=== PATIENT | female | born 1950 | race Caucasian/White ===

== ENCOUNTER 2017-02-08 19:56 | Observation (INO) | payer BC ==
[2017-02-08] MEDS ORDERED: NITROGLYCERIN OINT 1 INCH/GM PACKET TOPICAL STA (20:40)
[2017-02-08] MEDS ORDERED: ASPIRIN 81 MG CHEW PO STA (20:40)
--- NOTE | 2017-02-08 20:43 | ED ---
General Adult HPI - General Chief complaint: Chest Pain Stated complaint: Tightness in Chest Time Seen by Provider: 02/08/17 20:30 Source: patient, RN notes reviewed Mode of arrival: ambulatory Limitations: no limitations - History of Present Illness Initial comments: Patient is a pleasant 66-year-old female presenting to the emergency department with complaints of tightness in her chest. Onset was around 3:30 or 4 wall cutting the grass. Patient states discomfort was moderate however now is mild. Discomfort is described as tightness. Patient also had some mild upset stomach/nausea that has resolved. No diaphoresis. No dyspnea. No history of similar symptoms previously. Patient was somewhat fatigued. No leg pain or swelling. No cough or fever. - Related Data Home Medications Medication Instructions Recorded Confirmed Albuterol Inhaler [Ventolin Hfa 1 - 2 puff INHALATION RT-Q6H PRN 04/28/16 Inhaler] Aspirin EC [Ecotrin] 81 mg PO DAILY 04/28/16 02/08/17 Cholecalciferol [Vitamin D3] 2,000 unit PO DAILY 04/28/16 02/08/17 Intal Inhaler 2 puff INHALATION RT-BID PRN 04/28/16 02/08/17 Loratadine [Claritin] 10 mg PO DAILY PRN 04/28/16 02/08/17 Montelukast [Singulair] 10 mg PO DAILY 04/28/16 02/08/17 Pantoprazole Sodium [Protonix] 20 mg PO DAILY 04/28/16 02/08/17 Phenobarb/Hyoscy/Atropine/Scop 16.2 mg PO DAILY PRN 04/28/16 02/08/17 [ Tablet] amLODIPine [Norvasc] 5 mg PO DAILY 04/28/16 02/08/17 Docusate [Colace] 100 mg PO DAILY PRN 09/09/16 02/08/17 Ranitidine HCl 150 mg PO HS 09/09/16 02/08/17 Allergies Allergy/AdvReac Type Severity Reaction Status Date / Time egg Allergy Dyspnea Verified 02/08/17 21:27 Review of Systems ROS Statement: Those systems with pertinent positive or pertinent negative responses have been documented in the HPI. ROS Other: All systems not noted in ROS Statement are negative. Constitutional: Denies: fever Eyes: Denies: eye pain ENT: Denies: ear pain Respiratory: Denies: cough, dyspnea Cardiovascular: Reports: chest pain Endocrine: Reports: fatigue Gastrointestinal: Reports: nausea. Denies: abdominal pain Genitourinary: Denies: urgency Musculoskeletal: Denies: back pain Skin: Denies: rash Neurological: Denies: headache Past Medical History Past Medical History: Asthma, GERD/Reflux, Hypertension, Osteoarthritis (OA), Syncope Additional Past Medical History / Comment(s): hx. of syncope History of Any Multi-Drug Resistant Organisms: None Reported Past Surgical History: Tonsillectomy Additional Past Surgical History / Comment(s): EGD, colonoscopies Past Anesthesia/Blood Transfusion Reactions: Postoperative Nausea & Vomiting ( PONV) Past Psychological History: No Psychological Hx Reported Smoking Status: Never smoker Past Alcohol Use History: None Reported Past Drug Use History: None Reported - Past Family History Mother Family Medical History: No Reported History General Exam Limitations: no limitations General appearance: alert, in no apparent distress Head exam: Present: atraumatic, normocephalic Eye exam: Present: normal appearance, PERRL ENT exam: Present: normal oropharynx Neck exam: Present: normal inspection Respiratory exam: Present: normal lung sounds bilaterally. Absent: chest wall tenderness Cardiovascular Exam: Present: regular rate, normal rhythm Expanded Peripheral pulses: 2+: Radial (R), Radial (L), Dorsalis Pedis (R), Dorsalis Pedis (L) GI/Abdominal exam: Present: soft. Absent: distended, tenderness, guarding, rebound, rigid, pulsatile mass Extremities exam: Present: normal inspection. Absent: pedal edema, calf tenderness Neurological exam: Present: alert Psychiatric exam: Present: normal affect, normal mood Skin exam: Absent: rash Course Vital Signs 02/08/17 02/08/17 20:03 22:16 Temperature 98.1 F Pulse Rate 101 H 92 Respiratory 20 16 Rate Blood Pressure 162/85 118/66 O2 Sat by Pulse 99 97 Oximetry EKG Findings - EKG Comments: EKG Findings:: Normal sinus rhythm 95. LA 166. QRS 84. QT 362. QTC 454. Normal axis. Normal QRS. Normal ST-T. Medical Decision Making - Medical Decision Making Patient reevaluated and resting comfortably in bed. Patient symptom-free at this time. Patient updated on results and plan. Case discussed in detail with Dr. Hernandez, who will admit for Dr. Felix. - Lab Data Result diagrams: 02/08/17 21:08 02/08/17 21:08 Lab Results 02/08/17 02/08/17 02/08/17 Range/Units 21:08 21:08 21:08 WBC 10.8 H (3.8-10.6) k/uL RBC 4.42 (3.80-5.40) m/uL Hgb 12.8 (11.4-16.0) gm/dL Hct 40.1 (34.0-46.0) % MCV 90.6 (80.0-100.0) fL MCH 28.9 (25.0-35.0) pg MCHC 31.9 (31.0-37.0) g/dL RDW 13.6 (11.5-15.5) % Plt Count 334 (150-450) k/uL Neutrophils % 75 % Lymphocytes % 14 % Monocytes % 6 % Eosinophils % 3 % Basophils % 1 % Neutrophils # 8.1 H (1.3-7.7) k/uL Lymphocytes # 1.5 (1.0-4.8) k/uL Monocytes # 0.7 (0-1.0) k/uL Eosinophils # 0.3 (0-0.7) k/uL Basophils # 0.1 (0-0.2) k/uL PT (9.0-12.0) sec INR (<1.1) APTT (22.0-30.0) sec D-Dimer (<0.60) mg/L FEU Sodium 143 (137-145) mmol/L Potassium 4.0 (3.5-5.1) mmol/L Chloride 106 (98-107) mmol/L Carbon Dioxide 25 (22-30) mmol/L Anion Gap 12 mmol/L BUN 17 (7-17) mg/dL Creatinine 0.90 (0.52-1.04) mg/dL Est GFR (MDRD) Af Amer >60 (>60 ml/min/1.73 sqM) Est GFR (MDRD) Non-Af >60 (>60 ml/min/1.73 sqM) Glucose 95 (74-99) mg/dL Calcium 9.5 (8.4-10.2) mg/dL Magnesium 2.2 (1.6-2.3) mg/dL Total Bilirubin 0.3 (0.2-1.3) mg/dL AST 27 (14-36) U/L ALT 27 (9-52) U/L Alkaline Phosphatase 82 (38-126) U/L Total Creatine Kinase 104 (30-135) U/L CK-MB (CK-2) 1.6 (0.0-2.4) ng/mL CK-MB (CK-2) Rel Index 1.5 Troponin I <0.012 (0.000-0.034) ng/mL Total Protein 7.4 (6.3-8.2) g/dL Albumin 4.1 (3.5-5.0) g/dL Amylase 107 (30-110) U/L Lipase 76 (23-300) U/L / Range/Units 21:08 WBC (3.8-10.6) k/uL RBC (3.80-5.40) m/uL Hgb (11.4-16.0) gm/dL Hct (34.0-46.0) % MCV (80.0-100.0) fL MCH (25.0-35.0) pg MCHC (31.0-37.0) g/dL RDW (11.5-15.5) % Plt Count (150-450) k/uL Neutrophils % % Lymphocytes % % Monocytes % % Eosinophils % % Basophils % % Neutrophils # (1.3-7.7) k/uL Lymphocytes # (1.0-4.8) k/uL Monocytes # (0-1.0) k/uL Eosinophils # (0-0.7) k/uL Basophils # (0-0.2) k/uL PT 10.0 (9.0-12.0) sec INR 1.0 (<1.1) APTT 23.9 (22.0-30.0) sec D-Dimer 0.31 (<0.60) mg/L FEU Sodium (137-145) mmol/L Potassium (3.5-5.1) mmol/L Chloride (98-107) mmol/L Carbon Dioxide (22-30) mmol/L Anion Gap mmol/L BUN (7-17) mg/dL Creatinine (0.52-1.04) mg/dL Est GFR (MDRD) Af Amer (>60 ml/min/1.73 sqM) Est GFR (MDRD) Non-Af (>60 ml/min/1.73 sqM) Glucose (74-99) mg/dL Calcium (8.4-10.2) mg/dL Magnesium (1.6-2.3) mg/dL Total Bilirubin (0.2-1.3) mg/dL AST (14-36) U/L ALT (9-52) U/L Alkaline Phosphatase (38-126) U/L Total Creatine Kinase (30-135) U/L CK-MB (CK-2) (0.0-2.4) ng/mL CK-MB (CK-2) Rel Index Troponin I (0.000-0.034) ng/mL Total Protein (6.3-8.2) g/dL Albumin (3.5-5.0) g/dL Amylase (30-110) U/L Lipase (23-300) U/L - Radiology Data Radiology results: image reviewed (Chest x-ray reveals no acute process) Disposition Clinical Impression: Chest pain Disposition: ADMITTED IP TO THIS HOSP
--- NOTE | 2017-02-08 21:01 | XR ---
EXAMINATION TYPE: XR chest 2V DATE OF EXAM: 02/08/2017 8:53 PM COMPARISON: 12/30/2011 HISTORY: Abdominal pain TECHNIQUE: Frontal and lateral views of the chest are obtained. FINDINGS: Heart and mediastinum are normal. Lungs are clear. Diaphragm is normal. Bony thorax is int act. IMPRESSION: Normal chest. No change.
[2017-02-08 21:21] LABS: Basophils # (A) 0.1 k/uL (0-0.2); Basophils % (A) 1 %; CH 29.9; CHCM 33.1; Eosinophils # (A) 0.3 k/uL (0-0.7); Eosinophils % (A) 3 %; HCT 40.1 % (34.0-46.0); HDW 2.36; HGB 12.8 gm/dL (11.4-16.0); Luc # (Auto) 0.21; Luc % (Auto) 2; Lymphocytes # (A) 1.5 k/uL (1.0-4.8); Lymphocytes % (A) 14 %; MCH 28.9 pg (25.0-35.0); MCHC 31.9 g/dL (31.0-37.0); MCV 90.6 fL (80.0-100.0); Mean Platelet Volume 6.5; Monocytes # (A) 0.7 k/uL (0-1.0); Monocytes % (A) 6 %; Neutrophils # (A) 8.1 k/uL (1.3-7.7); Neutrophils % (A) 75 %; RBC 4.42 m/uL (3.80-5.40); RDW 13.6 % (11.5-15.5); WBC 10.8 k/uL (3.8-10.6); WBC (Perox) 10.92
[2017-02-08 21:31] LABS: ALT 27 U/L (9-52); AST 27 U/L (14-36); Alkaline Phosphatase 82 U/L (38-126); Amylase 107 U/L (30-110); Anion Gap 12 mmol/L; Blood Urea Nitrogen 17 mg/dL (7-17); Calcium 9.5 mg/dL (8.4-10.2); Carbon Dioxide 25 mmol/L (22-30); Chloride 106 mmol/L (98-107); Glucose 95 mg/dL (74-99); Magnesium 2.2 mg/dL (1.6-2.3); Non-African American GFR(MDRD) >60 (>60 ml/min/1.73 sqM); Partial Thromboplastin Time 23.9 sec (22.0-30.0); Sodium 143 mmol/L (137-145); Total Bilirubin 0.3 mg/dL (0.2-1.3); Total Protein 7.4 g/dL (6.3-8.2)
[2017-02-08 21:38] LABS: Creatine Kinase 104 U/L (30-135)
[2017-02-08 21:51] LABS: Creatine Kinase MB 1.6 ng/mL (0.0-2.4); Troponin I <0.012 ng/mL (0.000-0.034)
[2017-02-09] MEDS ORDERED: NITROGLYCERIN SL TABS 0.4 MG TAB SUBLINGUAL PRN (00:16)
[2017-02-09 03:57] LABS: Creatine Kinase 101 U/L (30-135)
[2017-02-09 04:10] LABS: Creatine Kinase MB 1.4 ng/mL (0.0-2.4); Troponin I <0.012 ng/mL (0.000-0.034)
[2017-02-09 04:26] VITALS: BMI 28.1
[2017-02-09] MEDS ORDERED: NITROGLYCERIN OINT 1 INCH/GM PACKET TOPICAL SCH (06:00)
--- NOTE | 2017-02-09 08:43 | P.CRDCN ---
<Shawna Braxton E - Last Filed: 02/09/17 08:36> History of Present Illness Consult date: 02/09/17 Requesting physician: Pati Christianson Consult reason: chest pain Chief complaint: Chest pain History of present illness: This is a 66-year-old female patient with history of hypertension, borderline hyperlipidemia, asthma, GERD, family history of premature coronary artery disease in that her father had a myocardial infarction at the age of 40. She states that yesterday she had eaten a bag of chips and drank a cup of coffee, shortly thereafter she went outside to cut the grass and did not feel well. She developed a discomfort underneath her left breast area, in the midepigastric area and mild discomfort in the right upper quadrant. She continued to cut the grass and states that she couldn't finish because she just didn't feel well. She drove herself to the local pharmacy, states that then she became quite dizzy and therefore came to the emergency room for further evaluation. Blood pressure on arrival to the emergency room 162/80, heart rate 100, 99% on room air. White blood cell count 10.8, hemoglobin 12.8, d-dimer 0.3 , potassium 4.0. BUN 17, creatinine 0.9. Troponins have been negative 2. EKG on arrival here showed a normal sinus rhythm with inferior Q waves. Patient did have an echocardiogram with Doppler study performed in August 2015 which revealed a normal left ventricular systolic function at that time. At the time of my examination this morning, patient denies any chest discomfort. Past Medical History Past Medical History: Asthma, GERD/Reflux, Hypertension, Osteoarthritis (OA), Syncope Additional Past Medical History / Comment(s): hx. of syncope History of Any Multi-Drug Resistant Organisms: None Reported Past Surgical History: Tonsillectomy Additional Past Surgical History / Comment(s): EGD, colonoscopies Past Anesthesia/Blood Transfusion Reactions: Postoperative Nausea & Vomiting ( PONV) Past Psychological History: No Psychological Hx Reported Smoking Status: Never smoker Past Alcohol Use History: None Reported Past Drug Use History: None Reported - Past Family History Mother Family Medical History: No Reported History Medications and Allergies Home Medications Medication Instructions Recorded Confirmed Type Albuterol Inhaler [Ventolin Hfa 1 - 2 puff INHALATION RT-Q6H PRN 04/28/16 History Inhaler] Aspirin EC [Ecotrin] 81 mg PO DAILY 04/28/16 02/08/17 History Cholecalciferol [Vitamin D3] 2,000 unit PO DAILY 04/28/16 02/08/17 History Intal Inhaler 2 puff INHALATION RT-BID PRN 04/28/16 02/08/17 History Loratadine [Claritin] 10 mg PO DAILY PRN 04/28/16 02/08/17 History Montelukast [Singulair] 10 mg PO DAILY 04/28/16 02/08/17 History Pantoprazole Sodium [Protonix] 20 mg PO DAILY 04/28/16 02/08/17 History Phenobarb/Hyoscy/Atropine/Scop 16.2 mg PO DAILY PRN 04/28/16 02/08/17 History [ Tablet] amLODIPine [Norvasc] 5 mg PO DAILY 04/28/16 02/08/17 History Docusate [Colace] 100 mg PO DAILY PRN 09/09/16 02/08/17 History Ranitidine HCl 150 mg PO HS 09/09/16 02/08/17 History Allergies Allergy/AdvReac Type Severity Reaction Status Date / Time egg Allergy Dyspnea Verified 02/08/17 21:27 Physical Exam Vitals: Vital Signs Temp Pulse Pulse Resp BP BP Pulse Ox 02/09/17 04:36 81 18 138/79 98 02/09/17 02:15 97.6 F 80 18 145/80 100 02/09/17 01:37 76 16 144/82 97 Intake and Output 02/08/17 02/09/17 02/09/17 22:59 06:59 14:59 Intake Total 0 Balance 0 Intake: Oral 0 Other: # Voids 1 Weight 70.8 kg PHYSICAL EXAMINATION: HEENT: Head is atraumatic, normocephalic. Pupils equal, round. Neck is supple. There is no elevated jugular venous pressure. HEART EXAMINATION: Heart S1, S2 normal. No murmur or gallop heard. CHEST EXAMINATION: Lungs are clear to auscultation and precussion. No chest wall tenderness is noted on palpation or with deep breathing. ABDOMEN: Soft, nontender. Bowel sounds are heard. No organomegaly noted. EXTREMITIES: 2+ peripheral pulses with no evidence of peripheral edema and no calf tenderness noted. NEUROLOGIC patient is awake, alert and oriented -3. . Results 02/08/17 21:08 02/08/17 21:08 Cardiac Enzymes 02/09/17 Range/Units 03:16 CK-MB (CK-2) 1.4 (0.0-2.4) ng/mL Troponin I <0.012 (0.000-0.034) ng/mL Current Medications Generic Name Dose Route Start Last Admin Trade Name Freq PRN Reason Stop Dose Admin Aspirin 325 mg 02/10/17 09:00 Aspirin PO DAILY KRISTIAN Nitroglycerin 0.5 inch 02/09/17 06:00 02/09/17 05:24 Nitro-Bid Oint TOPICAL Not Given Q6HR KRISTIAN Nitroglycerin 0.4 mg 02/09/17 00:16 Nitrostat SUBLINGUAL Q5M PRN Chest Pain Intake and Output 02/08/17 02/09/17 02/09/17 22:59 06:59 14:59 Intake Total 0 Balance 0 Intake: Oral 0 Other: # Voids 1 Weight 70.8 kg EKG Interpretations (text) EKG shows normal sinus rhythm with inferior Q waves. No acute changes noted. Assessment and Plan Plan: Assessment and plan #1 chest pain, atypical for acute coronary syndrome. Troponins negative 2. EKG shows normal sinus rhythm with inferior Q waves. No acute changes were noted. #2 history of hypertension #3 family history of premature coronary artery disease #4 borderline hyperlipidemia #5 asthma #6 GERDS Plan We will obtain an echocardiogram with Doppler study. We will also obtain a third troponin value. Schedule patient for a stress test today. If the stress test and echocardiogram are normal, from cardiology's perspective she may be able to be discharged home today. Further recommendations to follow. DNP note has been reviewed, I agree with a documented findings and plan of care. Patient was seen and examined. <Dev Hobson - Last Filed: 02/09/17 10:17> Physical Exam Vitals: Vital Signs Temp Pulse Pulse Resp BP BP Pulse Ox 02/09/17 08:00 97.1 F L 74 16 138/72 97 02/09/17 04:36 81 18 138/79 98 02/09/17 02:15 97.6 F 80 18 145/80 100 02/09/17 01:37 76 16 144/82 97 Intake and Output 02/08/17 02/09/1702/09/17 22:59 06:59 14:59 Intake Total 0 Balance 0 Intake: Oral 0 Other: Voiding Method Toilet # Voids 1 Weight 70.8 kg Results 02/09/17 09:40 02/08/17 21:08 Cardiac Enzymes 02/09/17 Range/Units 03:16 CK-MB (CK-2) 1.4 (0.0-2.4) ng/mL Troponin I <0.012 (0.000-0.034) ng/mL CBC 02/09/17 Range/Units 09:40 WBC 7.5 (3.8-10.6) k/uL RBC 4.38 (3.80-5.40) m/uL Hgb 12.8 (11.4-16.0) gm/dL Hct 39.8 (34.0-46.0) % Plt Count 339 (150-450) k/uL Current Medications Generic Name Dose Route Start Last Admin Trade Name Freq PRN Reason Stop Dose Admin Aspirin 325 mg 02/10/17 09:00 Aspirin PO DAILY KRISTIAN Nitroglycerin 0.5 inch 02/09/17 06:00 02/09/17 05:24 Nitro-Bid Oint TOPICAL Not Given Q6HR KRISTIAN Nitroglycerin 0.4 mg 02/09/17 00:16 Nitrostat SUBLINGUAL Q5M PRN Chest Pain Intake and Output 02/08/17 02/09/17 02/09/17 22:59 06:59 14:59 Intake Total 0 Balance 0 Intake: Oral 0 Other: Voiding Method Toilet # Voids 1 Weight 70.8 kg 02/09/17 09:40
[2017-02-09 08:50] VITALS: RESP 16
[2017-02-09 10:01] LABS: Basophils # (A) 0.1 k/uL (0-0.2); Basophils % (A) 1 %; CH 29.4; CHCM 32.5; Eosinophils # (A) 0.2 k/uL (0-0.7); Eosinophils % (A) 3 %; HCT 39.8 % (34.0-46.0); HDW 2.34; HGB 12.8 gm/dL (11.4-16.0); Luc # (Auto) 0.24; Luc % (Auto) 3; Lymphocytes # (A) 1.4 k/uL (1.0-4.8); Lymphocytes % (A) 19 %; MCH 29.2 pg (25.0-35.0); MCHC 32.1 g/dL (31.0-37.0); MCV 90.9 fL (80.0-100.0); Mean Platelet Volume 7.1; Monocytes # (A) 0.7 k/uL (0-1.0); Monocytes % (A) 9 %; Neutrophils # (A) 4.9 k/uL (1.3-7.7); Neutrophils % (A) 65 %; RBC 4.38 m/uL (3.80-5.40); RDW 13.5 % (11.5-15.5); WBC 7.5 k/uL (3.8-10.6); WBC (Perox) 7.97
--- NOTE | 2017-02-09 10:25 | P.PN ---
Progress Note - Text 66-year-old female presenting with epigastric discomfort possibly exertional and spreading upwards and feeling nauseous and dizzy Cardiac enzymes are normal Hypertension, dyslipidemia Family history of premature coronary artery disease EKG shows Q waves in the inferior leads Plan 2-D echo and Doppler study Exercise Cardiolite stress test Please see full dictation by Dr. cooney
[2017-02-09 10:36] LABS: Creatine Kinase 93 U/L (30-135)
[2017-02-09 10:41] LABS: ALT 24 U/L (9-52); AST 24 U/L (14-36); Alkaline Phosphatase 78 U/L (38-126); Anion Gap 11 mmol/L; Blood Urea Nitrogen 16 mg/dL (7-17); Calcium 9.4 mg/dL (8.4-10.2); Carbon Dioxide 25 mmol/L (22-30); Chloride 107 mmol/L (98-107); Glucose 92 mg/dL (74-99); Non-African American GFR(MDRD) >60 (>60 ml/min/1.73 sqM); Potassium 4.1 mmol/L (3.5-5.1); Sodium 143 mmol/L (137-145); Total Bilirubin 0.6 mg/dL (0.2-1.3); Total Protein 7.7 g/dL (6.3-8.2)
[2017-02-09 10:48] LABS: Creatine Kinase MB 1.3 ng/mL (0.0-2.4); Troponin I <0.012 ng/mL (0.000-0.034)
--- NOTE | 2017-02-09 11:13 | ECHOF ---
Referral Reason:chest pain MEASUREMENTS -------- HEIGHT: 160.0 cm WEIGHT: 70.8 kg BP: 138/72 RVIDd: 2.8 cm (< 3.3) IVSd: 1.0 cm (0.6 - 1.1) LVIDd: 3.1 cm (3.9 - 5.3) LVPWd: 1.0 cm (0.6 - 1.1) IVSs: 1.4 cm LVIDs: 2.2 cm LVPWs: 1.4 cm LA Diam: 2.9 cm (2.7 - 3.8) LAESV Index (A-L): 18.72 ml/m Ao Diam: 2.6 cm (2.0 - 3.7) AV Cusp: 1.9 cm (1.5 - 2.6) MV EXCURSION: 16.703 mm (> 18.000) MV EF SLOPE: 89 mm/s (70 - 150) EPSS: 0.2 cm MV E Edgar: 0.81 m/s MV DecT: 272 ms MV A Edgar: 0.76 m/s MV E/A Ratio: 1.07 FINDINGS -------- Sinus rhythm. This was a technically adequate study. The left ventricular size is normal. Left ventricular wall thickness is normal. Overall left ventricular systolic function is normal with, an EF between 60 - 65 %. The right ventricle is normal in size. Normal LA size by volume 22+/-6 ml/m2. The right atrium is normal in size. The aortic valve was not well visualized. Mild mitral annular calcification present. The tricuspid valve appears structurally normal. Trace/mild (physiologic) pulmonic regurgitation. The aortic root size is normal. Normal inferior vena cava with normal inspiratory collapse consistent with estimated right atrial pressure of 5 mmHg. The pericardium is normal. CONCLUSIONS -------- 1. Sinus rhythm. 2. The tricuspid valve appears structurally normal. 3. Trace/mild (physiologic) pulmonic regurgitation. 4. The aortic root size is normal. 5. Normal inferior vena cava with normal inspiratory collapse consistent with estimated right atrial pressure of 5 mmHg. 6. The pericardium is normal. 7. This was a technically adequate study. 8. The left ventricular size is normal. 9. Left ventricular wall thickness is normal. 10. Overall left ventricular systolic function is normal with, an EF between 60 - 65 %. 11. The right ventricle is normal in size. 12. Normal LA size by volume 22+/-6 ml/m2. 13. The aortic valve was not well visualized. 14. Mild mitral annular calcification present. RANGE OPERATOR: Cherrie Ramírez RDCS
[2017-02-09] MEDS ORDERED: PHENOBARB/HYOSCY/ATROPINE/SCOP 16.2 MG TAB PO PRN (11:15)
[2017-02-09] MEDS ORDERED: ALBUTEROL NEBULIZED 2.5 MG/3 ML INHALATION PRN (11:15)
[2017-02-09] MEDS ORDERED: LORATADINE 10 MG TAB PO PRN (11:15)
[2017-02-09] MEDS ORDERED: DOCUSATE 100 MG CAP PO PRN (11:15)
[2017-02-09] MEDS ORDERED: ONDANSETRON 4 MG/2 ML VIAL IVP PRN (11:17)
--- NOTE | 2017-02-09 11:28 | P.HPIM ---
History of Present Illness H&P Date: 02/09/17 Chief Complaint: Chest pressure left-sided chest This is a 66-year-old female, patient of Dr. Lipscomb. She has a known past medical history of GERD, hypertension and mild gastritis. She presents to the emergency room with complaints of left sided chest pressure underneath the left breast, epigastric area and right upper quadrant. She also is having nausea. Patient reports she had a small bag of chips yesterday afternoon and then started not feeling well she went outside to do lawn work and continued not to feel well. She started to have severe nausea with the chest pressure she took the ranitidine without improvement. She then drove herself to the local pharmacy who became quite dizzy and decided to come into the emergency room. Patient does report having an EGD done in August 2016 did show gastritis. EKG shows normal sinus rhythm troponins were negative 2 sets chest x-rays negative. She's had a slight elevated white count at 10.8. Cardiology was consulted they ordered an echocardiogram which shows an EF of 60-65% with trace/ mild pulmonary regurgitation. Cardiology has ordered a stress test. Patient reports her last stress test was probably about 7 years ago and was negative at that time. Amylase and lipase and LFTs are all within normal range. D-dimer 0.3. Patient denies any vomiting. Denies any bowel movement changes or urinary symptoms. Denies any cough, fevers chills or sweats. Patient does report having some shortness of breath mostly in the evening time while sleeping but she reports that not new. She denies any shortness of breath with the chest pressure. Review of Systems Please refer to HPI otherwise unremarkable Past Medical History Past Medical History: Asthma, GERD/Reflux, Hypertension, Osteoarthritis (OA), Syncope Additional Past Medical History / Comment(s): hx. of syncope History of Any Multi-Drug Resistant Organisms: None Reported Past Surgical History: Tonsillectomy Additional Past Surgical History / Comment(s): EGD, colonoscopies Past Anesthesia/Blood Transfusion Reactions: Postoperative Nausea & Vomiting ( PONV) Past Psychological History: No Psychological Hx Reported Smoking Status: Never smoker Past Alcohol Use History: None Reported Past Drug Use History: None Reported - Past Family History Mother Family Medical History: No Reported History Medications and Allergies Home Medications Medication Instructions Recorded Confirmed Type Albuterol Inhaler [Ventolin Hfa 1 - 2 puff INHALATION RT-Q6H PRN 04/28/16 History Inhaler] Aspirin EC [Ecotrin] 81 mg PO DAILY 04/28/16 02/08/17 History Cholecalciferol [Vitamin D3] 2,000 unit PO DAILY 04/28/16 02/08/17 History Intal Inhaler 2 puff INHALATION RT-BID PRN 04/28/16 02/08/17 History Loratadine [Claritin] 10 mg PO DAILY PRN 04/28/16 02/08/17 History Montelukast [Singulair] 10 mg PO DAILY 04/28/16 02/08/17 History Pantoprazole Sodium [Protonix] 20 mg PO DAILY 04/28/16 02/08/17 History Phenobarb/Hyoscy/Atropine/Scop 16.2 mg PO DAILY PRN 04/28/16 02/08/17 History [ Tablet] amLODIPine [Norvasc] 5 mg PO DAILY 04/28/16 02/08/17 History Docusate [Colace] 100 mg PO DAILY PRN 09/09/16 02/08/17 History Ranitidine HCl 150 mg PO HS 09/09/16 02/08/17 History Allergies Allergy/AdvReac Type Severity Reaction Status Date / Time egg Allergy Dyspnea Verified 02/08/17 21:27 Physical Exam Vitals: Vital Signs Temp Pulse Pulse Resp BP BP Pulse Ox 02/09/17 11:04 97.6 F 76 16 131/70 100 02/09/17 08:00 97.1 F L 74 16 138/72 97 02/09/17 04:36 81 18 138/79 98 02/09/17 02:15 97.6 F 80 18 145/80 100 02/09/17 01:37 76 16 144/82 97 Intake and Output 02/08/17 02/09/17 02/09/17 22:59 06:59 14:59 Intake Total 0 Balance 0 Intake: Oral 0 Other: Voiding Method Toilet # Voids 1 Weight 70.8 kg Head normocephalic Neck supple Lungs clear to auscultation bilaterally no wheezing or crackles Heart regular rate and rhythm S1-S2, no rub or gallop Abdomen is soft epigastric tenderness nondistended positive bowel sounds no hepatosplenomegaly Extremities no edema Neuro alert and orientated to 3 Results CBC & Chem 7: 02/09/17 09:40 02/09/17 09:40 Thrombosis Risk Factor Assmnt - Choose All That Apply Any of the Below Risk Factors Present?: No Other Risk Factors: Yes Each Risk Factor Represents 2 Points: Age 61-74 years Thrombosis Risk Factor Assessment Total Risk Factor Score: 2 Thrombosis Risk Factor Assessment Level: Low Risk Assessment and Plan Plan: 1. Chest pain: Atypical symptoms. Troponins are negative 2 sets. EKG shows a normal sinus rhythm. Cardiology has been consulted they've ordered an echo cardiogram shows an EF of 60-65% with mild pulmonary regurgitation. Stress test has also been ordered. We'll await their further recommendations. 2. Essential hypertension 3. History of mild asthma no evidence of exacerbation 4. GERD: We will place patient on IV Protonix and Zantac Possible discharge later this afternoon if stress test is negative Time with Patient: Greater than 30 (Greater than 50% of the total time spent in counseling and coordination of care. I performed an examination of the patient and discussed their management with the physician Gear Hobber Operator. I have reviewed the Physician Gear Hobber Operator's notes and agree with the documented findings and plan of care)
[2017-02-09] MEDS ORDERED: PANTOPRAZOLE 40 MG/10 ML VIAL IVP SCH (11:30)
--- NOTE | 2017-02-09 13:00 | EST ---
DATE OF SERVICE: 02/09/2017 AGE: 66Y SEX: F HT: 63" WT: 156 lbs. Protocol [place]: X Other: Cardiolite Stage: II Dur. of Exercise: 6 minutes *Heart Rate Blood Pressure *Rest: 96 Rest: 154/82 * *Max. Achieved: 167 Maximum BP: 217/122 85% PMHR: 132 100% PMHR: 155 *METS: 7.3 INDICATIONS: Chest pain. MEDICATIONS: Madelaine Vila is a 66-year-old female who presented with burning discomfort in the chest. She underwent a stress test today. Cardiac enzymes are normal. Baseline heart rate 96 beats a minute. Baseline blood pressure 154/82 mmHg. Baseline 12-lead ECG showed normal sinus rhythm with nonspecific ST-T abnormalities with a subtle ST depression in the lateral precordial leads. She exercised on [place] protocol for 6 minutes, achieving a peak heart rate of 167 beats a minute. She had a hypertensive response to exercise. Upsloping ST depressions were noted in the lateral precordial leads. Nuclear portion of the stress test will be reported separately. No arrhythmias noted.
--- NOTE | 2017-02-09 15:09 | NM ---
EXAMINATION TYPE: NM stress cardiolite complete DATE OF EXAM: 02/09/2017 12:57 PM COMPARISON: 01/31/2010 HISTORY: 66-year-old female with chest pain TECHNIQUE: After the intravenous administration of 11 mCi Tc 99m Sestamibi - Rest images obtained 55 minutes post injection. The patient exercised using a JOSIAH protocol and 1 minute prior to peak ex ercise was injected with 27.3 mCi Tc 99m Sestamibi - Stress images obtained 15 minutes post injection . FINDINGS: Targeted heart rate was achieved during performance of the study. Review of stress and rest SPECT beatrice ges demonstrates no distinct perfusion abnormality. Gated analysis shows normal wall motion with an estimated left ventricular ejection fraction of 61 %. TID is calculated at 0.65, within normal limit s. IMPRESSION: No scintigraphic evidence for reversible ischemia
[2017-02-09 15:50] VITALS: BP 148/75; PULSE 77; TEMP 97
[2017-02-09] MEDS ORDERED: FAMOTIDINE 20 MG TAB PO SCH (21:00)
[2017-02-09] MEDS ORDERED: HEPARIN SODIUM,PORCINE 5,000 UNIT/ML 1 ML VIAL SQ SCH (21:00)
[2017-02-10] MEDS ORDERED: ASPIRIN 325 MG TAB PO SCH (09:00)
[2017-02-10] MEDS ORDERED: amLODIPine 5 MG TAB PO SCH (09:00)
[2017-02-10] MEDS ORDERED: MONTELUKAST 10 MG TAB PO SCH (09:00)
[2017-02-10] MEDS ORDERED: CHOLECALCIFEROL 1,000 UNIT TAB PO SCH (09:00)
== END 2017-02-09 17:50 | disposition home or self-care (01) ==
LOC: EC 19:56 → 6SEL 02-09 00:16
PROVIDERS: ADMIT Internal Medicine; ATTEND Internal Medicine
DX: R07.89 Other chest pain (principal); R10.11 Right upper quadrant pain; R11.0 Nausea; R10.13 Epigastric pain; I10 Essential (primary) hypertension; Z82.49 Family history of ischemic heart disease and other diseases of the circulatory system; E78.5 Hyperlipidemia, unspecified; J45.909 Unspecified asthma, uncomplicated; K21.9 Gastro-esophageal reflux disease without esophagitis; K29.70 Gastritis, unspecified, without bleeding; Z79.82 Long term (current) use of aspirin; Z79.899 Other long term (current) drug therapy; Z91.012 Allergy to eggs; R42 Dizziness and giddiness; D72.829 Elevated white blood cell count, unspecified
CPT/HCPCS: 99285; 36415; 93005; 93017; 93306; 85379; 80053 ×2; 82150; 82550 ×2; 82553 ×2; 83690; 83735; 84484 ×2; 85025 ×2; 85610; 85730; 71020; 78452; G0378; A9500

== ENCOUNTER → 2017-02-26 | Outpatient (CLI) | payer BC ==
--- NOTE | 2017-02-26 13:54 | MM ---
Reason for exam: screening (asymptomatic). Last mammogram was performed 1 year and 2 months ago. History: Patient is postmenopausal and is nulliparous. Family history of breast cancer in aunt at age 80. Benign right mammotome panel of the right breast, February 03, 2007. Cyst aspiration of the left breast. Cyst aspiration of the right breast. Physical Findings: A clinical breast exam by your physician is recommended on an annual basis and results should be correlated with mammographic findings. MG 3D Screening Mammo W/Cad Bilateral CC and MLO view(s) were taken. Prior study comparison: December 26, 2015, bilateral MG screening mammo w CAD. December 22, 2014, bilateral MG screening mammo w CAD. The breast tissue is heterogeneously dense. This may lower the sensitivity of mammography. Previous mammotome biopsy in the right breast. No significant changes when compared with prior studies. ASSESSMENT: Benign, BI-RAD 2 RECOMMENDATION: Routine screening mammogram of both breasts in 1 year.
== END | disposition home or self-care (01) ==
LOC: RADMAMWWP 09:06
PROVIDERS: ATTEND Obstetrics & Gynecology
DX: Z12.31 Encounter for screening mammogram for malignant neoplasm of breast (principal); Z80.3 Family history of malignant neoplasm of breast
CPT/HCPCS: 77063; G0202

== ENCOUNTER → 2018-03-25 | Outpatient (CLI) | payer BC ==
--- NOTE | 2018-03-26 10:24 | MM ---
Reason for exam: screening (asymptomatic). Last mammogram was performed 1 year and 1 month ago. History: Patient is postmenopausal and is nulliparous. Family history of breast cancer in aunt at age 80. Benign right mammotome panel of the right breast, February 03, 2007. Cyst aspiration of the left breast. Cyst aspiration of the right breast. Physical Findings: A clinical breast exam by your physician is recommended on an annual basis and results should be correlated with mammographic findings. MG 3D Screening Mammo W/Cad Bilateral CC and MLO view(s) were taken. XCCL view(s) were taken of the left breast. Prior study comparison: February 26, 2017, bilateral MG 3d screening mammo w/cad. December 26, 2015, bilateral MG screening mammo w CAD. The breast tissue is heterogeneously dense. This may lower the sensitivity of mammography. Finding: There are typically benign round, linear calcifications in both breasts. Previous mammotome biopsy in the right breast. There is no discrete abnormality. ASSESSMENT: Benign, BI-RAD 2 RECOMMENDATION: Routine screening mammogram of both breasts in 1 year.
== END | disposition home or self-care (01) ==
LOC: RADMAMWWP 13:55
PROVIDERS: ATTEND Obstetrics & Gynecology
DX: Z12.31 Encounter for screening mammogram for malignant neoplasm of breast (principal)
CPT/HCPCS: 77063; 77067

== ENCOUNTER → 2018-03-26 | Outpatient (CLI) | payer BC ==
--- NOTE | 2018-03-26 12:28 | US ---
EXAMINATION TYPE: US abdomen complete DATE OF EXAM: 03/26/2018 COMPARISON: None CLINICAL HISTORY: 67-year-old female R10.11 Rt Upper quadrant pain; Sternal pressure; asthma TECHNIQUE: Multiple sonographic images of the abdomen are obtained. FINDINGS: EXAM MEASUREMENTS: Liver Length: 11.3 cm Gallbladder Wall: 0.1 cm CBD: 0.3 cm Spleen: 6.7 cm Right Kidney: 9.0 x 5.0 x 3.4 cm Left Kidney: 8.6 x 5.1 x 4.6 cm Pancreas: Suboptimal visualization of the pancreatic tail. Liver: hepatic cyst noted in right lobe = 1.1 x 1.2 x 1.0cm Gallbladder: wnl Evidence for sonographic Pedroza's sign: no CBD: wnl Spleen: wnl Right Kidney: Inferior pole obscured by bowel gas . No hydronephrosis. Left Kidney: Some bowel gas shadowing limiting the lower pole. No hydronephrosis. Upper IVC: wnl Abd Aorta: No evidence for aneurysm. Mild atelectatic changes are noted throughout. IMPRESSION: Suboptimal visualization of portions of the pancreas and lower poles of the kidneys. Incidental 1.2 c m right hepatic cyst. Otherwise, unremarkable sonographic examination of the abdomen.
== END | disposition home or self-care (01) ==
LOC: RADUSWWP 08:58
PROVIDERS: ATTEND Family Medicine
DX: R10.11 Right upper quadrant pain (principal)
CPT/HCPCS: 76700

== ENCOUNTER → 2018-03-29 | Outpatient (CLI) | payer BC ==
--- NOTE | 2018-03-29 16:35 | BD ---
EXAMINATION TYPE: Axial Bone Density DATE OF EXAM: 03/29/2018 COMPARISON: NONE CLINICAL HISTORY: 67-year-old female with disorder of bone, postmenopausal screening Height: 5 FT 2 IN Weight: 155 FRAX RISK QUESTIONS: Secondary Osteoporosis: 3. Menopause before 45: NOT SURE RISK FACTORS HISTORY OF: Postmenopausal woman: UNSURE WHEN Lost more than 2 inches in height since high school: YES MEDICATIONS: Additional Medications: SINGULAIR, PROTONIX, AMLODIPINE, VENTOLIN INHALER Additional History: ASTHMA EXAM MEASUREMENTS: Bone mineral densitometry was performed using the [employer]. Bone mineral density as measured about the Lumbar spine is: ----- L1-L4(G/cm2): 0.967 T Score Values are as follows: ----- L2: -1.6 ----- L3: -1.6 ----- L4: -2.2 ----- L1-L4: -1.8 Bone mineral density has: INCREASED 6.0 % since study of: 2011 Bone mineral density about the R hip (g/cm2): 0.808 Bone mineral density about the L hip (g/cm2): 0.794 T Score values are as follows: -----R Neck: -1.7 -----L Neck: -1.8 -----R Total: -1.0 -----L Total: -1.6 Bone mineral density has: INCREASED 0.7 % since study of: 2011 IMPRESSION: Osteopenia (T Score between -2.5 and -1). There is slightly increased risk of fracture and the patient may be considered for treatment. Re-Screen 2-5 years. NOTE: T-SCORE=SD OF THE YOUNG ADULT MEAN.
== END | disposition home or self-care (01) ==
LOC: RADBDWWP 14:47
PROVIDERS: ATTEND Obstetrics & Gynecology
DX: M85.80 Other specified disorders of bone density and structure, unspecified site (principal)
CPT/HCPCS: 77080

== ENCOUNTER → 2018-08-06 | Outpatient (CLI) | payer BC ==
[2018-08-06 13:37] VITALS: BP 137/76; PULSE 88; RESP 18; TEMP 97.6; BMI 26.5
--- NOTE | 2018-08-06 14:04 | P.GSHP ---
History of Present Illness H&P Date: 08/06/18 Chief Complaint: left nipple pain The patient is a 68 year old white female with a complaint of left breast and nipple pain about one month ago. It was consistent and persistent for approximately 3 weeks. The pain was aching and sharp and seemed to shoot out through her nipple. The patient had no new lumps in her breasts at that time. The patient had no nipple discharge of concern. She had no trauma or infection in her breast. At this time the patient does not have pain in her breast. She has no new medications. Her last mammogram was 03/25/2018. This was a BIRADS 2. Recommendation was routine screening of both breasts in 1 year. She drinks about 1 cup of coffee/day, this is down for about 3 cups/day. She does not drink pop. She does not smoke, she has no second hand exposure. She eats chocolate every day. The pain is not cyclical. Family History: maternal aunt: breast paternal great uncle: colon cancer maternal grandmother: bladder cancer Hormonal History: menarche: 13 : none menopause: 51 BCP: none hormones: none Past Surgical History: 1. tonsil 2. left breast biopsy Past Medical History: 1. reflux 2. asthma Social History smoke: none Alcohol:none drugs: none - Constitutional Comment: optical migrains Constitutional: Denies chills, Denies fever - EENT Eyes: denies blurred vision, denies pain Ears: bilateral: tinnitus, deny: decreased hearing Ears, nose, mouth and throat: Reports sore throat, Denies headache - Breasts Breasts: bilateral: as per HPI - Cardiovascular Cardiovascular: Denies chest pain, Denies shortness of breath - Respiratory Comment: asthma - Gastrointestinal Comment: reflux - Genitourinary (Female) Genitourinary: Denies dysuria, Denies hematuria - Menstruation Menstruation: Reports postmenopausal - Musculoskeletal Comment: arthritis - Integumentary Integumentary: Denies pruritus, Denies rash - Neurological Neurological: Denies numbness, Denies weakness - Psychiatric Psychiatric: Denies anxiety, Denies depression - Endocrine Endocrine: Denies fatigue, Denies weight change - Hematologic/Lymphatic Comment: aspirin - Allergic/Immunologic Allergic/Immunologic: Reports seasonal allergies Past Medical History Past Medical History: Asthma, GERD/Reflux, Hypertension, Osteoarthritis (OA), Syncope Additional Past Medical History / Comment(s): hx. of syncope History of Any Multi-Drug Resistant Organisms: None Reported Past Surgical History: Breast Surgery, Tonsillectomy Additional Past Surgical History / Comment(s): EGD, colonoscopies, left breast biopsy Past Anesthesia/Blood Transfusion Reactions: Postoperative Nausea & Vomiting ( PONV) Past Psychological History: No Psychological Hx Reported Smoking Status: Never smoker Past Alcohol Use History: None Reported Past Drug Use History: None Reported - Past Family History Mother Family Medical History: No Reported History Additional Family Medical History / Comment(s): maternal aunt with breast cancer Father Family Medical History: Diabetes Mellitus Additional Family Medical History / Comment(s): heart disease Medications and Allergies Home Medications Medication Instructions Recorded Confirmed Type Albuterol Inhaler [Ventolin Hfa 1 - 2 puff INHALATION RT-Q6H PRN 04/28/16 History Inhaler] Aspirin EC [Ecotrin Low Dose] 81 mg PO QAM 04/28/16 08/06/18 History Cholecalciferol [Vitamin D3] 2,000 unit PO QAM 04/28/16 08/06/18 History Intal Inhaler 2 puff INHALATION RT-BID PRN 04/28/16 08/06/18 History Loratadine [Claritin] 10 mg PO QAM PRN 04/28/16 08/06/18 History Montelukast [Singulair] 10 mg PO QAM 04/28/16 08/06/18 History Pantoprazole Sodium [Protonix] 20 mg PO QAM 04/28/16 08/06/18 History Phenobarb/Hyoscy/Atropine/Scop 16.2 mg PO DAILY PRN 04/28/16 08/06/18 History [ Tablet] amLODIPine [Norvasc] 10 mg PO QAM 04/28/16 08/06/18 History Docusate [Colace] 100 mg PO DAILY PRN 09/09/16 08/06/18 History Ranitidine HCl 150 mg PO HS 09/09/16 08/06/18 History Allergies Allergy/AdvReac Type Severity Reaction Status Date / Time egg Allergy Dyspnea Verified 08/06/18 13:25 Surgical - Exam Vital Signs Temp Pulse Resp BP Pulse Ox 97.6 F 88 18 137/76 98 08/06/18 13:30 08/06/18 13:30 08/06/18 13:30 08/06/18 13:30 08/06/18 13:30 BMI 26.6 - General well developed, well nourished, no distress - Eyes normal ocular movement - ENT no hearing loss, no congestion - Neck no masses, trachea midline - Respiratory normal respiratory effort, clear to auscultation - Cardiovascular Rhythm: regular Heart Sounds: normal: S1, S2 - Abdomen Abdomen: soft, non tender, no guarding, no rigid, no rebound - Integumentary good turger - Musculoskeletal normal gait, normal posture - Psychiatric oriented to time, oriented to person, oriented to place, speech is normal, memory intact breast exam: right breast: Multi-positional exam no dominant masses or nodules of concern Right axilla: No adenopathy of concern Left breast: Multi-positional exam fibrocystic changes no dominant masses or nodules of concern Left axilla: No adenopathy of concern Patient has prominent anterior ribs bilaterally Results Mammogram report reviewed from February 2018 Assessment and Plan Assessment: Impression: 1. Bilateral fibrocystic breast changes 2. Bilateral prominent ribs anteriorly 3. Asthma 4. Arthritis 5. Mastodynia improved Plan: 1. Decrease caffeine/theophylline intake 2. Medical management of medical problems 3. Patient does not have any concerns for cancer on physical examination or radiographically 4. Follow-up in February with bilateral mammogram and physician exam 5. Patient to follow up sooner if she has any questions or anything of concern I have discussed with the patient that her breast discomfort is most likely fibrocystic in nature. This would be helped by decreasing her caffeine and theophylline intake. The patient understands we'll take this in a consideration. At this time her pain is largely decreased. Cc: Dr. Betty Chopra, Dr. Anisha Moss
== END | disposition home or self-care (01) ==
LOC: WWCWWP 13:17
PROVIDERS: ATTEND Surgery
DX: Z53.9 Procedure and treatment not carried out, unspecified reason (principal)

== ENCOUNTER 2018-12-29 11:29 | Day surgery (SDC) | payer BC ==
[2018-12-27 11:38] VITALS: BMI 26.5
[~2018-12-29 11:29] MED LIST: LACTATED RINGERS 1,000 ML IV SCH
[2018-12-29 12:22] VITALS: TEMP 98
[2018-12-29] MEDS ORDERED: LIDOCAINE 1% 20 ML VIAL (10MG/ML) FOR IV START INTRADERMA ONE (12:31)
[2018-12-29] MEDS ORDERED: PROPOFOL 10 MG/ML 20 ML VIAL IV ONE (12:51)
--- NOTE | 2018-12-29 12:59 | P.GSHP ---
History of Present Illness H&P Date: 12/29/18 Chief Complaint: GERD This a 68-year-old female referred from Dr. mai. Patient notes today for EGD. Past Medical History Past Medical History: Asthma, GERD/Reflux, Hypertension, Osteoarthritis (OA), Syncope Additional Past Medical History / Comment(s): STATES "SEVERE FAINTS"- STATES CAUSED BY VASOVAGAL., CONSTIPATION., STATES "THROBBING IN ABDOMEN". History of Any Multi-Drug Resistant Organisms: None Reported Past Surgical History: Breast Surgery, Tonsillectomy Additional Past Surgical History / Comment(s): EGD, colonoscopies, left breast biopsy Past Anesthesia/Blood Transfusion Reactions: Postoperative Nausea & Vomiting (PONV) Past Psychological History: No Psychological Hx Reported Smoking Status: Never smoker Past Alcohol Use History: None Reported Past Drug Use History: None Reported - Past Family History Mother Family Medical History: No Reported History Additional Family Medical History / Comment(s): maternal aunt with breast cancer Father Family Medical History: Diabetes Mellitus Additional Family Medical History / Comment(s): heart disease Medications and Allergies Home Medications Medication Instructions Recorded Confirmed Type Albuterol Inhaler [Ventolin Hfa 1 - 2 puff INHALATION RT-Q6H PRN 04/28/16 12/29/18 History Inhaler] Aspirin EC [Ecotrin Low Dose] 81 mg PO QAM 04/28/16 12/29/18 History Cholecalciferol [Vitamin D3] 2,000 unit PO QAM 04/28/16 12/29/18 History Loratadine [Claritin] 10 mg PO QAM PRN 04/28/16 12/29/18 History Montelukast [Singulair] 10 mg PO QAM 04/28/16 12/29/18 History Phenobarb/Hyoscy/Atropine/Scop 16.2 mg PO DAILY PRN 04/28/16 12/29/18 History [ Tablet] Ranitidine HCl 150 mg PO DAILY PRN 09/09/16 12/29/18 History Calcium Carbonate/Vitamin D3 1 each PO DAILY 12/27/18 12/29/18 History [Caltrate 600 Plus D3 Tablet] Pantoprazole [Protonix] 40 mg PO DAILY 12/27/18 12/29/18 History Sucralfate [Carafate] 1 gm PO TID-W/MEALS 12/27/18 12/29/18 History amLODIPine [Norvasc] 5 mg PO DAILY 12/27/18 12/29/18 History Allergies Allergy/AdvReac Type Severity Reaction Status Date / Time egg Allergy Dyspnea Verified 12/27/18 10:57 Surgical - Exam Vital Signs Temp Pulse Resp BP Pulse Ox 98.0 F 66 16 147/69 99 12/29/18 12:16 12/29/18 12:16 12/29/18 12:16 12/29/18 12:16 12/29/18 12:16 - General well developed, well nourished, no distress - Eyes PERRL - ENT normal pinna - Neck no masses - Respiratory normal expansion - Cardiovascular Rhythm: regular - Abdomen Abdomen: soft, non tender Assessment and Plan Assessment: GERD. We'll perform EGD.
--- NOTE | 2018-12-29 13:08 | P.OP ---
Date of Procedure: 12/29/18 Preoperative Diagnosis: GERD Postoperative Diagnosis: Antral gastritis Hiatal hernia Esophagitis Procedure(s) Performed: EGD Anesthesia: MAC Surgeon: Goran Prado Pathology: other (Antral, esophagus) Condition: stable Disposition: PACU Description of Procedure: The patient's placed on the endoscopy table in the lateral position. She received IV sedation. The gastroscope placed oropharynx passed in the esophagus and into the stomach. Scope was then placed through the pylorus. The first and second portion of the duodenum appeared normal. Scope was then brought back the antrum and this appeared mildly inflamed. The scope was then retroflexed the remainder stomach appeared normal. Scope was then retroflexed and the patient had a moderate size hiatal hernia. The GE junction was at 38 cm. The distal esophagus was inflamed. A biopsies performed. The proximal esophagus appeared normal. Scope was withdrawn for patient.
[2018-12-29 13:21] VITALS: RESP 18
[2018-12-29 13:38] VITALS: BP 129/65; PULSE 88
== END 2018-12-29 14:12 | disposition home or self-care (01) ==
LOC: ORWHC2ENDO 11:29
PROVIDERS: ATTEND Surgery
DX: K21.0 Gastro-esophageal reflux disease with esophagitis (principal); K29.50 Unspecified chronic gastritis without bleeding; K44.9 Diaphragmatic hernia without obstruction or gangrene; J45.909 Unspecified asthma, uncomplicated; I10 Essential (primary) hypertension; M19.90 Unspecified osteoarthritis, unspecified site; Z80.3 Family history of malignant neoplasm of breast; Z79.82 Long term (current) use of aspirin; Z79.899 Other long term (current) drug therapy; Z91.012 Allergy to eggs
CPT/HCPCS: 88305; 43239; J2704

== ENCOUNTER → 2019-04-07 | Outpatient (CLI) | payer BC ==
--- NOTE | 2019-04-08 09:56 | MM ---
Reason for exam: screening (asymptomatic). Last mammogram was performed 1 year ago. History: Patient is postmenopausal and is nulliparous. Family history of breast cancer in aunt at age 80. Benign right mammotome panel of the right breast, February 03, 2007. Cyst aspiration of the left breast. Cyst aspiration of the right breast. Physical Findings: A clinical breast exam by your physician is recommended on an annual basis and results should be correlated with mammographic findings. MG 3D Screening Mammo W/Cad Bilateral CC and MLO view(s) were taken. Prior study comparison: March 25, 2018, bilateral MG 3d screening mammo w/cad. February 26, 2017, bilateral MG 3d screening mammo w/cad. The breast tissue is heterogeneously dense. This may lower the sensitivity of mammography. There are benign appearing round calcifications bilaterally. Previous mammotome biopsy in the right breast. There is no discrete abnormality. ASSESSMENT: Benign, BI-RAD 2 RECOMMENDATION: Routine screening mammogram of both breasts in 1 year.
== END | disposition home or self-care (01) ==
LOC: RADMAMWWP 08:54
PROVIDERS: ATTEND Surgery
DX: Z12.31 Encounter for screening mammogram for malignant neoplasm of breast (principal)
CPT/HCPCS: 77063; 77067

== ENCOUNTER → 2019-04-28 | Outpatient (CLI) | payer BC ==
[2019-04-28 16:11] VITALS: BP 116/76; PULSE 79; RESP 18; TEMP 98.4; BMI 25.7
--- NOTE | 2019-04-28 16:54 | P.PN ---
Subjective Progress Note Date: 04/28/19 Madelaine is a 68-year-old white female who presents for routine breast examination. She is not complaining of any pain or problems with her breasts. She is to complaining of any masses or lumps in her breasts. [place] [address] which is felt to be benign BIRADS 2. On her last visit she was complaining of some left breast discomfort which has resolved. She drinks 1 cup of coffee/day. She does not drink pop. She mae not smoke and is not exposed to secondhand smoke. She used to eat significant amount of chocolate which she is decreased. Family history: 1. Maternal aunt: Breast cancer Hormonal history: Menarche:13 G0 menopause: 51 BCP: none hormones: none Surgical history: 1. Tonsillectomy 2. Left breast biopsy Medical history: 1. Reflux 2. Asthma Social history: Smoking: Negative Alcohol: Negative Drugs: Negative History of systems: Constitutional negative Breasts: As per HPI Heart: Negative Respiratory: Asthma GI: Reflux : Negative Musculoskeletal: Arthritis Integument: Negative Psychiatric: Negative Endocrine: Negative Hematologic: Aspirin ALLERGIES: Seasonal ALLERGIES Patient has a history of optical migraines Objective - Vital Signs Vital signs: Vital Signs Temp 98.4 F 04/28/19 16:07 Pulse 79 04/28/19 16:07 Resp 18 04/28/19 16:07 BP 116/76 04/28/19 16:07 Pulse Ox 98 04/28/19 16:07 Intake & Output 04/27/19 04/28/19 04/28/19 18:59 06:59 18:59 Weight 68.039 kg - Exam BMI 25.7 - Constitutional General appearance: Present: average body habitus - EENT Eyes: Present: EOMI ENT: Present: hearing grossly normal - Neck Neck: Present: normal ROM - Respiratory Respiratory: bilateral: CTA - Cardiovascular Rhythm: regular Heart sounds: normal: S1, S2 - Gastrointestinal General gastrointestinal: Present: soft - Integumentary Integumentary: Present: normal turgor - Musculoskeletal Musculoskeletal: Present: gait normal - Psychiatric Psychiatric: Present: A&O x's 3, appropriate affect, intact judgment & insight - Additional findings Additional findings: Breast examination: Right breast: Multi-positional exam no dominant masses or nodules of concern, prominent anterior rib cage Right axilla: No adenopathy of concern left breast: Multiple positional exam no dominant masses or nodules of concern, fibrocystic breast changes Left axilla: No adenopathy of concern Assessment and Plan Assessment: Impression: 1. Fibrocystic breast changes 2. Prominent anterior rib cage 3. Family history of cancer 4. Asthma Plan: 1. Repeat bilateral mammogram and physician exam in 1 year 2. Patient to call immediately if she has any concerns or questions regarding her breast Cc: Dr. Lipscomb, Dr. Chopra
== END ==
LOC: WWCWWP 15:26
PROVIDERS: ATTEND Surgery
DX: Z53.9 Procedure and treatment not carried out, unspecified reason (principal)

== ENCOUNTER 2019-08-19 10:31 | Observation (INO) | payer BC, MEDICARE ==
[2019-08-19] MEDS ORDERED: ASPIRIN 81 MG PO STA (11:26)
--- NOTE | 2019-08-19 11:26 | ED ---
Chest Pain HPI - General Chief Complaint: Chest Pain Stated Complaint: Chest pain, numbness in arm Time Seen by Provider: 08/19/19 10:47 Source: patient, RN notes reviewed, old records reviewed Mode of arrival: ambulatory Limitations: no limitations - History of Present Illness Initial Comments: Verna Arias is a 61-year-old female, she presents today for concern for chest pain, and left breast pain with shooting stabbing pain starting at 5:30 this morning. She describes the pain as sharp shooting pain stabbing in nature. She reports that she'll get these pains every few minutes. She reports that they were frequent been also be less frequent as the days went on. She went to work today, and called her primary care doctor's office due to persistent pains and they told her to come here. She denies any shortness of breath. Denies any fall or trauma to left breast. She is also concerned because she's been having some tingling sensation in the left arm. She states she does have frequent healing sensation left arm after a neck injury and has a pinched nerve. She denies any recent cardiac history. - Related Data Home Medications Medication Instructions Recorded Confirmed Albuterol Inhaler [Ventolin Hfa 1 - 2 puff INHALATION RT-Q6H PRN 04/28/16 08/19/19 Inhaler] Aspirin EC [Ecotrin Low Dose] 81 mg PO QAM 04/28/16 08/19/19 Loratadine [Claritin] 10 mg PO QAM PRN 04/28/16 08/19/19 Montelukast [Singulair] 10 mg PO QAM 04/28/16 08/19/19 Phenobarb/Hyoscy/Atropine/Scop 16.2 mg PO DAILY PRN 04/28/16 08/19/19 [ Tablet] Pantoprazole [Protonix] 40 mg PO DAILY 12/27/18 08/19/19 amLODIPine [Norvasc] 5 mg PO BID 12/27/18 08/19/19 Cholecalciferol [Vitamin D3 (25 2,000 unit PO DAILY 08/19/19 08/19/19 Mcg = 1000 Iu)] Fluticasone Furoate [Flonase 2 sprays EA NOSTRIL BID PRN 08/19/19 08/19/19 Sensimist] Allergies Allergy/AdvReac Type Severity Reaction Status Date / Time egg Allergy Dyspnea Verified 08/19/19 12:02 Review of Systems ROS Statement: Those systems with pertinent positive or pertinent negative responses have been documented in the HPI. ROS Other: All systems not noted in ROS Statement are negative. EKG Findings - EKG Comments: EKG Findings:: EKG shows normal sinus rhythm with sinus arrhythmia, otherwise normal EKG noted. Ventricular rate of 77 bpm. Normal S1 62 ms. QRS duration is 84 ms. QT QTc 32/432 ms. Past Medical History Past Medical History: Asthma, GERD/Reflux, Hypertension, Osteoarthritis (OA), Syncope Additional Past Medical History / Comment(s): STATES "SEVERE FAINTS"- STATES CAUSED BY VASOVAGAL., CONSTIPATION., STATES "THROBBING IN ABDOMEN". History of Any Multi-Drug Resistant Organisms: None Reported Past Surgical History: Breast Surgery, Tonsillectomy Additional Past Surgical History / Comment(s): EGD, colonoscopies, left breast biopsy Past Anesthesia/Blood Transfusion Reactions: Postoperative Nausea & Vomiting (PONV) Past Psychological History: No Psychological Hx Reported Smoking Status: Never smoker Past Alcohol Use History: None Reported Past Drug Use History: None Reported - Past Family History Mother Family Medical History: No Reported History Additional Family Medical History / Comment(s): maternal aunt with breast cancer Father Family Medical History: Diabetes Mellitus Additional Family Medical History / Comment(s): heart disease General Exam - General Exam Comments Initial Comments: Pleasant 69-year-old female. No distress. Limitations: no limitations General appearance: alert, in no apparent distress Head exam: Present: atraumatic, normocephalic, normal inspection Eye exam: Present: normal appearance, PERRL, EOMI. Absent: scleral icterus, conjunctival injection, periorbital swelling ENT exam: Present: normal exam, mucous membranes moist Neck exam: Present: normal inspection. Absent: tenderness, meningismus, lymphadenopathy Respiratory exam: Present: normal lung sounds bilaterally. Absent: respiratory distress, wheezes, rales, rhonchi, stridor Cardiovascular Exam: Present: regular rate, normal rhythm, normal heart sounds. Absent: systolic murmur, diastolic murmur, rubs, gallop, clicks GI/Abdominal exam: Present: soft, normal bowel sounds. Absent: distended, tenderness, guarding, rebound, rigid Extremities exam: Present: normal inspection, full ROM, normal capillary refill. Absent: tenderness, pedal edema, joint swelling, calf tenderness Back exam: Present: normal inspection Neurological exam: Present: alert, oriented X3, CN II-XII intact Psychiatric exam: Present: normal affect, normal mood Skin exam: Present: warm, dry, intact, normal color. Absent: rash Course Vital Signs 08/19/19 10:33 Temperature 97.7 F Pulse Rate 85 Respiratory 20 Rate Blood Pressure 165/89 O2 Sat by Pulse 99 Oximetry Chest Pain MDM - MDM 61-year-old female presents today for concern for sharp stabbing chest pain, symptoms started this morning and had diminished. She denies any shortness of breath or description of her pain. She does complain of some tingling and numbness her left arm. Initial EKG and troponin tests are negative. She was reevaluated, resting comfortably bed. She was given aspirin at this time. I discussed with age risk factors [place] the Patient for unstable angina and cardiac follow-up. Questions were answered. Disposition Clinical Impression: Chest pain Disposition: ADMITTED IP TO THIS HOSP Condition: Stable Is patient prescribed a controlled substance at d/c from ED?: No Referrals: Anisha Lipscomb DO [Primary Care Provider] - 1-2 days Time of Disposition: 14:04
[2019-08-19 11:35] LABS: Basophils # (A) 0.1 k/uL (0-0.2); Basophils % (A) 1 %; Eosinophils # (A) 0.5 k/uL (0-0.7); Eosinophils % (A) 9 %; HCT 38.5 % (34.0-46.0); HGB 12.9 gm/dL (11.4-16.0); Lymphocytes # (A) 1.2 k/uL (1.0-4.8); Lymphocytes % (A) 22 %; MCH 30.5 pg (25.0-35.0); MCHC 33.5 g/dL (31.0-37.0); MCV 91.1 fL (80.0-100.0); Mean Platelet Volume 6.2; Monocytes # (A) 0.4 k/uL (0-1.0); Monocytes % (A) 8 %; Neutrophils % (A) 56 %; Platelet Count 283 k/uL (150-450); RBC 4.23 m/uL (3.80-5.40); RDW 12.9 % (11.5-15.5); WBC 5.4 k/uL (3.8-10.6)
[2019-08-19 11:43] LABS: Albumin 4.4 g/dL (3.5-5.0); Calcium 9.5 mg/dL (8.4-10.2); Magnesium 2.2 mg/dL (1.6-2.3); Potassium 4.4 mmol/L (3.5-5.1); Total Bilirubin 0.2 mg/dL (0.2-1.3); Total Protein 7.5 g/dL (6.3-8.2)
[2019-08-19 11:50] LABS: INR 0.9 (<1.2); Partial Thromboplastin Time 24.4 sec (22.0-30.0); Prothrombin Time 9.9 sec (9.0-12.0)
--- NOTE | 2019-08-19 13:52 | XR ---
EXAMINATION TYPE: XR chest 2V DATE OF EXAM: 08/19/2019 COMPARISON: 02/08/2017 HISTORY: Shortness of breath TECHNIQUE: Frontal and lateral views of the chest are obtained. FINDINGS: Scattered senescent parenchymal changes noted. Hyperinflation compatible with COPD. No evidence for infiltrate. No evidence for atelectasis. Heart size is stable. Mediastinal structures are stable and grossly unremarkable. No evidence for hilar prominence. Degenerative changes dorsal spine. IMPRESSION: 1. No evidence for acute pulmonary disease.
[2019-08-19] MEDS ORDERED: NITROGLYCERIN SL TABS 0.4 MG TAB SUBLINGUAL PRN (14:00)
[2019-08-19] MEDS ORDERED: LORATADINE 10 MG TAB PO PRN (14:19)
[2019-08-19] MEDS ORDERED: PHENOBARB/HYOSCY/ATROPINE/SCOP 16.2 MG TAB PO PRN (14:19)
[2019-08-19 15:22] VITALS: BMI 27.4
[2019-08-19] MEDS: amLODIPine 5 MG TAB PO SCH (20:17)
[2019-08-19] MEDS ORDERED: HYDROcodone/APAP 5-325MG 1 EACH TAB PO PRN (22:56)
[2019-08-19] MEDS ORDERED: HYDROmorphone 0.5 MG/0.5 ML SYRINGE IVP PRN (22:56)
[2019-08-20 02:35] LABS: Cholesterol 194 mg/dL (<200); HDL Cholesterol 59 mg/dL (40-60); LDL Cholesterol,Calculated 115 mg/dL (0-99); Triglycerides 102 mg/dL (<150)
[2019-08-20 06:59] VITALS: BP 127/78; PULSE 76; RESP 18; TEMP 97.6
[2019-08-20] MEDS ORDERED: PANTOPRAZOLE 40 MG TABLET PO SCH (07:30)
[2019-08-20] MEDS ORDERED: ASPIRIN 325 MG TAB PO SCH (09:00)
[2019-08-20] MEDS ORDERED: NON FORMULARY DRUG (Aspirin Ec 81 MG) PO SCH (09:00)
[2019-08-20] MEDS ORDERED: CHOLECALCIFEROL 1,000 UNIT TAB PO SCH (09:00)
[2019-08-20] MEDS ORDERED: MONTELUKAST 10 MG TAB PO SCH (09:00)
[2019-08-20] MEDS: amLODIPine 5 MG TAB PO SCH ×2 (09:16→09:18)
--- NOTE | 2019-08-20 10:20 | HP ---
HISTORY AND PHYSICAL I am covering for Dr. Lipscomb. DATE OF SERVICE: 08/19/2019 CHIEF COMPLAINT: Chest pain and numbness of the left arm. HISTORY OF PRESENT ILLNESS: This is a 69-year-old woman with a past medical history of multiple medical illnesses including asthma, GERD, hypertension, history of DJD, recent syncope and severe faints being followed by Dr. Lipscomb in the outpatient setting was admitted with complaints of chest pain. The pain was felt mostly in the left side of the breast, rather shooting and stabbing character and going around the chest and patient also complaining of some pain and difficulties of the left shoulder with some numbness also. Because of multiple complaints, patient came to [facility] and admitted for further evaluation and treatment. The patient apparently went to work today and primary physician's office was called because of persistent pain and the patient came to [facility] and admitted for further evaluation and treatment. The initial troponins are negative. There is no history of fever, chills or rigors. No history of headache, loss of consciousness or seizures. PAST MEDICAL HISTORY: History of asthma, GERD, hypertension, DJD, history of breast surgery. HOME MEDICATIONS: 1. Norvasc 5 mg p.o. daily. 2. Flonase 2 sprays b.i.d. p.r.n. 3. Vitamin D3 two thousand daily. 4. 16.2 mg p.o. daily p.r.n. 5. Protonix 40 mg p.o. daily. 6. Singulair 10 mg q.a.m. 7. Claritin 10 mg q.a.m. 8. Ecotrin 81 mg p.o. daily. 9. Ventolin HFA 1-2 puffs q.6 p.r.n. ALLERGIES: EGG. FAMILY HISTORY: History of maternal aunt with breast cancer. SOCIAL HISTORY: No history of smoking. No history of alcohol intake. REVIEW OF SYSTEMS: ENT: No diminished vision. No diminished hearing. CARDIOVASCULAR: No angina. RESPIRATION: No cough or hemoptysis. GI: No nausea, vomiting. : No dysuria. NERVOUS SYSTEM: No numbness or weakness. ALLERGY: No asthma or hayfever. MUSCULOSKELETAL: As mentioned earlier. HEMATOLOGY: No history of anemia. ENDOCRINE No history of diabetes or hypothyroidism. CONSTITUTIONAL: As mentioned earlier. DERMATOLOGY: Negative. RHEUMATOLOGY: Negative. PSYCHIATRY: As mentioned earlier. PHYSICAL EXAMINATION: Patient is alert and oriented x3. Pulse is 67, blood pressure is 130/70, respiration 17, temperature 97.9, pulse ox 97% on room air skin: HEENT: Conjunctivae normal, oral mucosa moist. NECK: No jugular venous distention. No lymph node enlargement. CARDIOVASCULAR SYSTEM: S1, S2. RESPIRATION: Breath sounds diminished at the bases, no rhonchi, no crackles. ABDOMEN: Soft, nontender. No mass palpable. LEGS: No edema, no swelling. NERVOUS SYSTEM: Higher functions as mentioned earlier, moves all four limbs, no focal motor deficits. SKIN: No ulcer, rash, bleeding. JOINTS: No active deformity or arthropathy. LABS: CBC within normal limits. CMP within normals. Troponins are negative. EKG shows no acute changes. ASSESSMENT: 1. Chest pain, possible unstable angina, possibly musculoskeletal. 2. History of asthma. 3. History of gastroesophageal reflux disease. 4. Hypertension. 5. History of degenerative joint disease. 6. History of syncope. 7. History of constipation. 8. History of breast surgery. RECOMMENDATION: In this 69-year-old woman who presented with multiple medical issues, at this time I recommend to continue the current medications. Rule out myocardial infarction, unstable angina protocol, otherwise Cardiology consultation. The prognosis guarded because of multiple complex medical issues. Further recommendations to follow. A copy of this will be forwarded to Dr. Lipscomb who is the primary physician. MMODL / IJN: [id number] /
--- NOTE | 2019-08-20 16:17 | CONS ---
CONSULTATION Mrs. Arias is a 69-year-old female who is followed by Dr. Lipscomb and Dr. Hobson, who presented with symptoms of chest discomfort that started yesterday. 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 She has some radiation to the left arm. It was getting better, but because of the symptoms and after contacting her physician, she was asked to come to the emergency room and subsequently admitted. She is feeling well at the time of my evaluation. She has a known history of asthma and had mild exacerbation of asthma yesterday. Took her inhaler. She is not quite sure if the pain started prior or after. According to her, she has underwent a stress test by Dr. Hobson recently that showed no evidence of ischemia. She has no history of coronary artery disease or congestive heart failure. I have a stress test from 2017 that revealed no evidence of inducible ischemia. She denies any PND, orthopnea. She has any peripheral edema. No syncope. Her coronary risk factors are remarkable for hypertension. She is nondiabetic. Nonsmoker. MEDICATIONS: Her medications include aspirin, amlodipine 5 mg daily, Protonix, Singulair, Flonase, and Ventolin. REVIEW OF SYSTEMS: RESPIRATORY SYSTEM: She has history of asthma with mild cough. No fever. GI system: No recent GI bleeding. No peptic ulcer disease. system: No dysuria or hematuria. NERVOUS SYSTEM: No stroke or seizure. PHYSICAL EXAMINATION: 69-year-old female, alert, oriented, in no apparent distress. Blood pressure 127/70 with a heart rate in the 70s. HEAD: Normocephalic. Eyes sclerae anicteric. NECK: Good carotid upstroke. No bruit. No jugular venous distention. LUNGS: Clear to auscultation. HEART: Regular rate and rhythm S1, S2. No S3. No S4. No rub. ABDOMEN: Soft, nontender. Positive bowel sounds. No megaly. EXTREMITIES: No edema. Intact distal pulses. LAB DATA: Revealed troponin less than 0.012. BUN and creatinine of 18 and 0.83. Hemoglobin 12.9. EKG revealed a sinus mechanism, normal axis and intervals. Normal echocardiogram. Chest x-ray shows no acute infiltrate. IMPRESSION: 1. Chest discomfort atypical for ischemic heart disease, probably noncardiac. 2. History of hypertension. 3. History of asthma. RECOMMENDATIONS: From the cardiac standpoint, I will increase her activity. If she is stable, I would expect she should be able to be discharged home today and followed as an outpatient. Thank you for this consult. We will follow with you. JAVI / SO: [id number] /
--- NOTE | 2019-08-20 22:53 | DS ---
DISCHARGE SUMMARY FINAL DIAGNOSES: 1. Chest pain, myocardial infarction ruled out, possibly musculoskeletal. 2. History of asthma. 3. History of gastroesophageal reflux disease. 4. History of hypertension. 5. History of hyperlipidemia. 6. History of syncope. 7. History of constipation. 8. History of breast surgery. DISCHARGE DISPOSITION: The patient is being discharged in stable condition. Guarded prognosis. HISTORY OF PRESENT ILLNESS: This 69-year-old woman with past medical history of multiple medical problems being followed by Dr. Lipscomb in the outpatient setting was admitted with chest pain, myocardial infarction was ruled out. Cardiology saw the patient and cleared the patient for discharge and the patient will be followed up in the outpatient setting. The troponins are negative and EKG did not show acute abnormality. Possible outpatient evaluation. On exam, vitals are stable. Cardiovascular S1, S2. Abdomen soft. Nervous system: No focal deficits. DISCHARGE ADVICE AND MEDICATIONS: 1. Discharge diet is cardiac diet. 2. Activity limited until followup. 3. Follow up with Dr. Anisha Lipscomb in 2-3 days. 4. Follow up with Dr. Hobson as recommended for possible outpatient stress test and evaluation. DISCHARGE MEDICATIONS: 1. Claritin 10 mg q.a.m. p.r.n. 2. p.r.n. 16.2 mg p.o. daily p.r.n. 3. Ecotrin 81 mg p.o. daily. 4. Fluticasone 2 sprays daily b.i.d. p.r.n. 5. Norvasc 5 mg p.o. daily. 6. Protonix 40 mg p.o. daily. 7. Singulair 10 mg q.a.m. 8. Ventolin 1-2 puffs q.6h p.r.n. 9. Vitamin D3 2000 daily. Once again, the patient is being discharged in a stable condition with guarded prognosis. MMODL / IJN: [id number] /
== END 2019-08-20 11:13 | disposition home or self-care (01) ==
LOC: EC 10:31 → 1SOBS 13:53
PROVIDERS: ADMIT Hospitalist; ATTEND Hospitalist
DX: R07.89 Other chest pain (principal); E78.5 Hyperlipidemia, unspecified; I10 Essential (primary) hypertension; J45.909 Unspecified asthma, uncomplicated; K21.9 Gastro-esophageal reflux disease without esophagitis; Z79.82 Long term (current) use of aspirin; Z79.899 Other long term (current) drug therapy; Z80.3 Family history of malignant neoplasm of breast; Z83.3 Family history of diabetes mellitus; Z91.012 Allergy to eggs; Z82.49 Family history of ischemic heart disease and other diseases of the circulatory system; R20.0 Anesthesia of skin; M19.90 Unspecified osteoarthritis, unspecified site
CPT/HCPCS: 93005 ×2; 99285; 36415; 94760; 83880; 80061; 80053; 82150; 83690; 83735; 84484; 85025; 85610; 85730; 71046; G0378 ×2

== ENCOUNTER → 2019-09-26 | Outpatient (CLI) | payer BC, MEDICARE ==
--- NOTE | 2019-09-26 12:00 | EST ---
EXERCISE STRESS DATE OF SERVICE: 09/26/2019 AGE: 69 SEX: Female HT: 63" WT: 150 pounds PROTOCOL: Cardiolite [place] STAGE: II DURATION OF EXERCISE: 4 minutes HEART RATE REST: 79 BLOOD PRESSURE REST: 133/62 MAXIMUM HEART RATE ACHIEVED: 148 MAXIMUM BLOOD PRESSURE: 183/53 85% MPHR: 129 100% MPHR: 152 METS: 5.8 INDICATIONS: Chest pain. CLINICAL INFORMATION: Baseline rhythm is sinus mechanism, rate 79, normal axis and intervals, evidence suggesting inferoposterior myocardial infarction. Baseline blood pressure 133/62 mmHg. Patient exercise on [place] protocol for 4 minutes reaching peak rate 148 beats per minute which is equal to 97% maximum predicted heart rate. Peak blood pressure 183/53 mmHg. Test was terminated secondary to fatigue. There was no chest pain. Electrocardiograph monitoring revealed no evidence of diagnostic ischemic ST deviation. Cardiolite was injected at peak exercise. CONCLUSION: 1. Decreased exercise tolerance with normal electrocardiograph response to exercise. 2. Nuclear images will be reported separately. MMODL / IJN: [id number] /
--- NOTE | 2019-09-26 13:18 | NM ---
EXAMINATION TYPE: NM stress cardiolite complete DATE OF EXAM: 09/26/2019 COMPARISON: 02/09/2017 HISTORY: Angina pectoris TECHNIQUE: After the intravenous administration of 10.87 mCi Tc 99m Sestamibi - Rest images obtained 45 minutes post injection. The patient exercised using a JOSIAH protocol and 1 minute prior to peak exercise was injected with 26 mCi Tc 99m Sestamibi - Stress images obtained 30 minutes post injectio n. FINDINGS: Targeted heart rate was achieved during performance of the study. Review of stress and rest SPECT beatrice ges demonstrates no distinct perfusion abnormality. Mild physiologic ventricular apical thinning. Gat ed analysis shows normal wall motion with an estimated left ventricular ejection fraction of 51 %. TI D is within normal limits measured at 0.94. IMPRESSION: 1. Decrease in left ventricular ejection fraction in comparison the prior (now 51% and previously 61% ). No scintigraphic evidence for reversible ischemia.
== END | disposition home or self-care (01) ==
LOC: RADNMMAIN 08:03
PROVIDERS: ATTEND Family Medicine
DX: I20.9 Angina pectoris, unspecified (principal)
CPT/HCPCS: 93017; 78452; A9500

== ENCOUNTER → 2019-10-17 | Outpatient (CLI) | payer BC ==
--- NOTE | 2019-10-18 11:45 | ECHOF ---
Referral Reason:I20.9 Angina Pectoris MEASUREMENTS -------- HEIGHT: 160.0 cm WEIGHT: 68.0 kg BP: RVIDd: 4.2 cm (< 3.3) IVSd: 1.1 cm (0.6 - 1.1) LVIDd: 3.5 cm (3.9 - 5.3) LVPWd: 0.9 cm (0.6 - 1.1) IVSs: 1.6 cm LVIDs: 1.9 cm LVPWs: 1.5 cm LAESV Index (A-L): 17.72 ml/m Ao Diam: 2.3 cm (2.0 - 3.7) AV Cusp: 1.6 cm (1.5 - 2.6) LA Diam: 2.7 cm (2.7 - 3.8) MV EXCURSION: 17.701 mm (> 18.000) MV EF SLOPE: 32 mm/s (70 - 150) EPSS: 0.3 cm MV E Edgar: 0.85 m/s MV DecT: 260 ms MV A Edgar: 0.73 m/s MV E/A Ratio: 1.17 RAP: 5.00 mmHg RVSP: 25.72 mmHg FINDINGS -------- Sinus rhythm. This was a technically adequate study. The left ventricular size is normal. Left ventricular wall thickness is normal. Overall left vent ricular systolic function is normal with, an EF between 55 - 60 %. The diastolic filling pattern is normal for the age of the patient 9.08. The right ventricle is mildly enlarged. Normal LA size by volume 22+/-6 ml/m2. The right atrial size is normal. Interatrial and interventricular septum intact. The aortic valve was not well visualized. There is no evidence of aortic regurgitation. There is no evidence of aortic stenosis. No mitral regurgitation. Mild tricuspid regurgitation present. There is no evidence of pulmonary hypertension. The right v entricular systolic pressure, as measured by Doppler, is 25.72mmHg. The pulmonic valve was not well visualized. The aortic root size is normal. The inferior vena cava is mildly dilated. There is no pericardial effusion. CONCLUSIONS -------- 1. Sinus rhythm. 2. This was a technically adequate study. 3. The left ventricular size is normal. 4. Left ventricular wall thickness is normal. 5. Overall left ventricular systolic function is normal with, an EF between 55 - 60 %. 6. The diastolic filling pattern is normal for the age of the patient 9.08 7. The right ventricle is mildly enlarged. 8. Normal LA size by volume 22+/-6 ml/m2. 9. The right atrial size is normal. 10. Interatrial and interventricular septum intact. 11. The aortic valve was not well visualized. 12. There is no evidence of aortic regurgitation. 13. There is no evidence of aortic stenosis. 14. No mitral regurgitation. 15. Mild tricuspid regurgitation present. 16. There is no evidence of pulmonary hypertension. 17. The right ventricular systolic pressure, as measured by Doppler, is 25.72mmHg. 18. The pulmonic valve was not well visualized. 19. The aortic root size is normal. 20. The inferior vena cava is mildly dilated. 21. There is no pericardial effusion. STRAP MAKING MACHINE OPERATOR: Mena Ni RDCS
== END | disposition home or self-care (01) ==
LOC: RADECHMAIN 14:43
PROVIDERS: ATTEND Family Medicine
DX: I07.1 Rheumatic tricuspid insufficiency (principal); I20.9 Angina pectoris, unspecified
CPT/HCPCS: 93306

== ENCOUNTER → 2020-04-09 | Outpatient (CLI) | payer BC ==
--- NOTE | 2020-04-11 10:26 | MM ---
Reason for exam: screening (asymptomatic). Last mammogram was performed 1 year ago. History: Patient is postmenopausal and is nulliparous. Family history of breast cancer in aunt at age 80. Benign right mammotome panel of the right breast, February 03, 2007. Cyst aspiration of the left breast. Cyst aspiration of the right breast. Physical Findings: A clinical breast exam by your physician is recommended on an annual basis and results should be correlated with mammographic findings. MG 3D Screening Mammo W/Cad Bilateral CC and MLO view(s) were taken. Prior study comparison: April 07, 2019, bilateral MG 3d screening mammo w/cad. March 25, 2018, bilateral MG 3d screening mammo w/cad. The breast tissue is heterogeneously dense. This may lower the sensitivity of mammography. No significant changes when compared with prior studies. ASSESSMENT: Benign, BI-RAD 2 RECOMMENDATION: Routine screening mammogram of both breasts in 1 year.
== END | disposition home or self-care (01) ==
LOC: RADMAMWWP 08:02
PROVIDERS: ATTEND Surgery
DX: Z12.31 Encounter for screening mammogram for malignant neoplasm of breast (principal)
CPT/HCPCS: 77063; 77067

== ENCOUNTER → 2021-03-15 | Outpatient (CLI) | payer BC ==
--- NOTE | 2021-03-17 08:48 | BD ---
EXAMINATION TYPE: Axial Bone Density DATE OF EXAM: 03/15/2021 COMPARISON: 03.28.2018 CLINICAL HISTORY: 70 YR OLD FEMALE.....ICD-10 CODE: M89.3 DISORDER OF BONE Height: 61.2 Weight: 144 FRAX RISK QUESTIONS: NOTHING ADDITIONAL TO ADD HERE RISK FACTORS HISTORY OF: Postmenopausal woman: YES, AT AGE 51 Lost more than 2 inches in height since high school: YES Hyperparathyroidism: NO Adrenal Insufficiency: NO MEDICATIONS: Prednisone or other steroids: YES, FOR LUNGS, ASTHMA Additional Medications: BP MEDS, REFLUX MEDS, STATIN FOR CHOLESTEROL, VIT D Additional History: HYPERTENSION, CHOLESTEROL, ASTHMA EXAM MEASUREMENTS: Bone mineral densitometry was performed using the DOZ System. Bone mineral density as measured about the Lumbar spine is: ----- L1-L4(G/cm2): 0.995 T Score Values are as follows: ----- L1: -1.4 ----- L2: -1.5 ----- L3: -1.4 ----- L4: -2.0 ----- L1-L4: -1.5 Bone mineral density has: Increased 2.8% since study of: 03.29.2018 Bone mineral density about the R hip (g/cm2): 0.840 Bone mineral density about the L hip (g/cm2): 0.784 T Score values are as follows: -----R Neck: -1.7 -----L Neck: -1.8 -----R Total: -1.3 -----L Total: -1.8 Bone mineral density has: Decreased -3.3% since study of: 03.29.2018 FRAX%s: THERE IS A 16.9% CHANCE FOR A MAJOR OSTEOPOROTIC FX AND A 3.3% FOR HIP......PROBABILITY FO R FX IN 10 YRS TIME IMPRESSION: Osteopenia (T Score between -2.5 and -1) remains present. There remains slightly increased risk of fracture and the patient may be considered for treatment. Re-Screen 2-5 years. NOTE: T-SCORE=SD OF THE YOUNG ADULT MEAN.
== END | disposition home or self-care (01) ==
LOC: RADBDWWP 09:19
PROVIDERS: ATTEND Obstetrics & Gynecology
DX: Z13.820 Encounter for screening for osteoporosis (principal); M85.80 Other specified disorders of bone density and structure, unspecified site; Z79.52 Long term (current) use of systemic steroids
CPT/HCPCS: 77080

== ENCOUNTER → 2021-04-11 | Outpatient (CLI) | payer BC ==
--- NOTE | 2021-04-11 14:04 | USB ---
EXAMINATION TYPE: US breast limited BILAT DATE OF EXAM: 04/11/2021 COMPARISON: Mammogram same date CLINICAL HISTORY: N64.4 pain-mastodynia. Findings: The right breast was scanned with ultrasound at 9:00 and in the retroareolar region and axilla. The l eft breast was scanned with ultrasound at 7:00 and 9:00 and in the retroareolar region and axilla. There is no sonographic correlate for bilateral focal breast pain. Clinical follow-up is recommended. IMPRESSION: There is no sonographic correlate for bilateral focal breast pain. Clinical follow-up is recommended. BI-RADS 1, negative. Bilateral mammogram is recommended in one year.
--- NOTE | 2021-04-11 14:24 | MM ---
Reason for exam: additional evaluation requested from prior study. Last mammogram was performed 1 year ago. History: Patient is postmenopausal and is nulliparous. Family history of breast cancer in aunt at age 80. Benign right mammotome panel of the right breast, February 03, 2007. Cyst aspiration of the left breast. Cyst aspiration of the right breast. Physical Findings: Nurse did not find any significant physical abnormalities on exam. MG 3D Diag Mammo W/Cad PRITI Bilateral CC and MLO view(s) were taken. XCCL view(s) were taken of the right breast. Prior study comparison: April 09, 2020, bilateral MG 3d screening mammo w/cad. April 07, 2019, bilateral MG 3d screening mammo w/cad. The breast tissue is heterogeneously dense. This may lower the sensitivity of mammography. Right biopsy clip. No mammogram correlate for bilateral focal pain. Ultrasound recommended. These results were verbally communicated with the patient and result sheet given to the patient on 04/11/21. ASSESSMENT: Incomplete: need additional imaging evaluation, BI-RAD 0 RECOMMENDATION: Ultrasound of both breasts.
== END | disposition home or self-care (01) ==
LOC: RADMAMWWP 11:02
PROVIDERS: ATTEND Obstetrics & Gynecology
DX: N64.4 Mastodynia (principal)
CPT/HCPCS: 77062; 77066

== ENCOUNTER → 2022-04-14 | Outpatient (CLI) | payer BC ==
--- NOTE | 2022-04-15 11:32 | MM ---
Reason for Exam: Screening (asymptomatic). Last screening mammogram was performed 12 month(s) ago. Indicated Problems: Pain of both sides (Global) for 1 Month(s) : -pt states she has jessica breast pain in the lower quadrant off and on for 1 month. does not know. . Patient History: Menarche at age 13. Patient has no children. Postmenopausal. Cyst Aspiration on the Right side. Cyst Aspiration on the Left side. 02/03/2007, Benign Core Biopsy on the right side. Maternal aunt had breast cancer, age 80. Risk Values: Laura 5 year model risk: 2.3%. NCI Lifetime model risk: 6.6%. Prior Study Comparison: 04/07/2019 Bilateral Screening Mammogram, [facility]. 04/09/2020 Bilateral Screening Mammogram, [facility]. 04/11/2021 Bilateral Diagnostic Mammogram, [facility]. Tissue Density: The breast tissue is heterogeneously dense. This may lower the sensitivity of mammography. Findings: Analyzed By CAD. There is no suspicious group of microcalcifications or new suspicious mass in either breast. Benign calcifications noted. Previous biopsy clip marker noted. Overall Assessment: Benign, BI-RAD 2 Management: Screening Mammogram of both breasts in 1 year. A clinical breast exam by your physician is recommended on an annual basis and results should be correlated with mammographic findings. Electronically signed and approved by: Michael Strong M.D. Radiologis
== END | disposition home or self-care (01) ==
LOC: RADMAMWWP 09:20
PROVIDERS: ATTEND Obstetrics & Gynecology
DX: Z12.31 Encounter for screening mammogram for malignant neoplasm of breast (principal); Z78.0 Asymptomatic menopausal state; Z80.3 Family history of malignant neoplasm of breast
CPT/HCPCS: 77063; 77067

== ENCOUNTER → 2022-07-30 | Outpatient (CLI) | payer BC ==
--- NOTE | 2022-07-30 10:31 | US ---
EXAMINATION TYPE: US transvaginal DATE OF EXAM: 07/30/2022 COMPARISON: NONE CLINICAL HISTORY: N95.0 POSTMENOPAUSAL BLEEDING. TECHNIQUE: Transvaginal (TV). Transvaginal sonographic images of the pelvis were acquired. EXAM MEASUREMENTS: Uterus: 6.8 x 5.0 x 5.2 cm Endometrial Stripe: (limited) 0.52 cm Right Ovary: Not visualized Left Ovary: 2.0 x 2.4 x 1.0 cm 1. Uterus: Large solid, hypoechoic, vascular mass obstructing most of the uterus space. 5.8 x 4.1 x 5.2 cm. No normal uterine tissue visualized. 2. Endometrium: Not well visualized, may be within large mass vs obstructed by mass. 3. Right Ovary: Obscured by overlying bowel gas 4. Left Ovary: Anechoic lesion 1.1 x 0.90 x 1.1 cm Spectral, color and waveform doppler imaging shows good arterial and venous flow within the ovaries ; 5. Bilateral Adnexa: 6. Posterior cul-de-sac: Heterogeneous prominent uterus with 4 visualized endometrium likely within normal limits. There is ryan spected intramural near 6.0 cm poorly defined heterogeneous mass or probable large fibroid. No free f luid. Left ovary is seen. Right ovary not clearly identified. Incidental 1.1 cm thin-walled cyst in the lef t ovary. IMPRESSION: Heterogeneous enlarged uterus with suspected 6.0 cm intramural mass or large fibroid. Pel [place] MRI can be performed to confirm if desired.
== END | disposition home or self-care (01) ==
LOC: RADUSWWP 09:03
PROVIDERS: ATTEND Obstetrics & Gynecology
DX: N95.0 Postmenopausal bleeding (principal)
CPT/HCPCS: 76830

== ENCOUNTER → 2022-08-19 | Outpatient (CLI) | payer BC | END | disposition home or self-care (01) | LOC: LABPAT 10:52 | PROVIDERS: ATTEND Obstetrics & Gynecology | DX: Z01.812 Encounter for preprocedural laboratory examination (principal); Z01.818 Encounter for other preprocedural examination | CPT/HCPCS: 93005 ==

== ENCOUNTER 2022-08-22 11:02 | Day surgery (SDC) | payer BC ==
[2022-08-20 10:05] VITALS: BMI 27.0
--- NOTE | 2022-08-21 15:13 | P.HPOB ---
History of Present Illness H&P Date: 08/21/22 Chief Complaint: Postmenopausal bleeding, endometrial thickening This is a 72 y.o. female, 0, who presents for dilatation and curettage with hysteroscopy due to postmenopausal bleeding and endometrial thickening on ultrasound. She had some bright red bleeding about 2 months ago. She denied any pain or cramping. She did have a little more brown discharge since her initial episode. Pelvic ultrasound showed uterus measuring 6.8 x 5 x 5.2 cm with endometrium measuring 52 mm. Large probable fibroid occupying most of endometrial cavity measured 5.8 x 4.1 x 5.2 cm. Small 1.1 cm cyst noted on left ovary. OB Hx: G0. 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 Review of Systems Constitutional: Reports fatigue, Denies chills, Denies fever Eyes: denies blurred vision, denies pain Ears, nose, mouth and throat: Denies headache, Denies sore throat Cardiovascular: Denies chest pain, Denies shortness of breath Respiratory: Denies cough Gastrointestinal: Reports abdominal pain (intermittent), Reports bloating, Reports constipation, Reports heartburn, Reports nausea (occasional), Denies diarrhea, Denies vomiting Genitourinary: Reports abnormal vaginal bleeding Musculoskeletal: Reports myalgias Integumentary: Denies pruritus, Denies rash Neurological: Denies numbness, Denies weakness Psychiatric: Reports anxiety, Denies depression Past Medical History Past Medical History: Asthma, GERD/Reflux, Hyperlipidemia, Hypertension, Osteoarthritis (OA), Syncope Additional Past Medical History / Comment(s): STATES "SEVERE FAINTING "- STATES CAUSED BY VASOVAGAL., CONSTIPATION., HIATAL HERNIA History of Any Multi-Drug Resistant Organisms: None Reported Past Surgical History: Breast Surgery, Tonsillectomy Additional Past Surgical History / Comment(s): EGD, colonoscopies, left breast biopsy, LAPAROSCOPIC SURGERY, Past Anesthesia/Blood Transfusion Reactions: Postoperative Nausea & Vomiting (PONV) Past Psychological History: Anxiety Smoking Status: Never smoker Past Alcohol Use History: None Reported Past Drug Use History: None Reported - Past Family History Mother Family Medical History: No Reported History Additional Family Medical History / Comment(s): maternal aunt with breast cancer Father Family Medical History: Diabetes Mellitus Additional Family Medical History / Comment(s): heart disease Medications and Allergies Home Medications Medication Instructions Recorded Confirmed Type Albuterol Inhaler [Ventolin Hfa 1 - 2 puff INHALATION RT-Q6H PRN 04/28/16 08/20/22 History Inhaler] Aspirin EC [Ecotrin Low Dose] 81 mg PO QAM 04/28/16 08/20/22 History Loratadine [Claritin] 10 mg PO DAILY PRN 04/28/16 08/20/22 History Montelukast [Singulair] 10 mg PO QAM 04/28/16 08/20/22 History Phenobarb/Hyoscy/Atropine/Scop 16.2 mg PO DAILY PRN 04/28/16 08/20/22 History [ Tablet] Pantoprazole [Protonix] 20 mg PO DAILY 12/27/18 08/20/22 History Cholecalciferol [Vitamin D3 (25 2,000 unit PO DAILY 08/19/19 08/20/22 History Mcg = 1000 Iu)] Fluticasone Furoate [Flonase 1 sprays EA NOSTRIL DAILY PRN 08/19/19 08/20/22 History Sensimist] Atorvastatin [Lipitor] 20 mg PO DAILY 08/20/22 08/20/22 History Olmesartan Medoxomil [Benicar] 40 mg PO DAILY 08/20/22 08/20/22 History Allergies Allergy/AdvReac Type Severity Reaction Status Date / Time egg Allergy Dyspnea Verified 08/20/22 09:49 prednisone Allergy "TIGHT Verified 08/20/22 09:49 FEELING IN HER HEAD" Exam Osteopathic Statement: *. No significant issues noted on an osteopathic structural exam other than those noted in the History and Physical/Consult. HEENT: within normal limits Heart: regular rate and rhythm Lungs: clear to auscultation bilaterally Abdomen: soft, non-tender Pelvic: difficult exam due to patient guarding, cervix nulliparous os with no visible blood. No adnexal masses. Extremities: neg. Raffi's. Assessment and Plan (1) Postmenopausal bleeding Status: Acute Code(s): N95.0 - POSTMENOPAUSAL BLEEDING SNOMED Code(s): 41712774 (2) Endometrial thickening on ultrasound Status: Acute Code(s): R93.89 - ABNORMAL FINDINGS ON DX IMAGING OF OTH BODY STRUCTURES SNOMED Code(s): 025780733 Plan: Proceed with dilatation and curettage with hysteroscopy. I have discussed the risks, benefits, and alternative therapies for the above- mentioned procedure and for both sedation/anesthesia as well as necessary blood products administration, if indicated, as they pertain to this patient. The patient has indicated her understanding and acceptance of the risks and procedures discussed.
[~2022-08-22 11:02] MED LIST changes: +DEXAMETHASONE SOD PHOSPHATE 4 MG/ML 1 ML VIAL IV ONE; +HYDROmorphone 0.5 MG/0.5 ML SYRINGE IVP PRN; +ONDANSETRON 4 MG/2 ML VIAL IVP ONE; +Pre Op ABX Message 1 EACH MISC MISCELLANE ONE
[2022-08-22 12:01] VITALS: RESP 16
[2022-08-22] MEDS ORDERED: LIDOCAINE 1% (10MG/ML) FOR IV START INTRADERMA ONE (12:11)
[2022-08-22] MEDS ORDERED: LIDOCAINE 2% INJ 20 MG/ML (2 ML VIAL) ONE (13:04)
[2022-08-22] MEDS ORDERED: KETOROLAC 15 MG/ML 1 ML VIAL ONE (13:04)
[2022-08-22] MEDS ORDERED: MIDAZOLAM 2 MG/2 ML VIAL ONE (13:04)
[2022-08-22] MEDS ORDERED: SUCCINYLCHOLINE CHLORIDE 200 MG/10 ML VIAL IV ONE (13:04)
[2022-08-22] MEDS ORDERED: fentaNYL (PF) 50 MCG/ML 2 ML AMP ONE (13:04)
[2022-08-22] MEDS ORDERED: PROPOFOL 10 MG/ML 20 ML VIAL IV ONE (13:04)
--- NOTE | 2022-08-22 13:37 | P.OP ---
Date of Procedure: 08/22/22 Preoperative Diagnosis: Postmenopausal bleeding Endometrial thickening Postoperative Diagnosis: Same Procedure(s) Performed: Dilation and curettage with hysteroscopy Anesthesia: ELENA Surgeon: Betty Chopra Estimated Blood Loss (ml): 10 Pathology: other (Endometrial curetting) Condition: stable Disposition: floor Indications for Procedure: This is a 72 y.o. female, 0, who presents for dilatation and curettage with hysteroscopy due to postmenopausal bleeding and endometrial thickening on ultrasound. She had some bright red bleeding about 2 months ago. She denied any pain or cramping. She did have a little more brown discharge since her initial episode. Pelvic ultrasound showed uterus measuring 6.8 x 5 x 5.2 cm with endometrium measuring 52 mm. Large probable fibroid occupying most of endometrial cavity measured 5.8 x 4.1 x 5.2 cm. Small 1.1 cm cyst noted on left ovary. Operative Findings: Uterus is retroverted and slightly bulky, uterus is sounded to 7 cm. Upon hysteroscopy, dyssynchronous endometrial pattern is visualized. Right tubal ostia is visualized and appears normal. Left tubal ostia was not visualized. There is some area that appears to be fat and probable submucosal fibroid. No adnexal masses are palpated. Description of Procedure: The patient is taken to the operating room where she is placed in the dorsal lithotomy position. She is prepped and draped in the normal sterile fashion. Her bladder is drained with a catheter and then removed. Examination is performed under anesthesia. Uterus is found to be slightly enlarged, bulky, and retroverted. No adnexal masses are palpated. Due to her narrow introitus, a weighted speculum was not used. A [place] Zealander was used to gently retract the posterior vaginal wall and an Allis clamp was used to grasp the anterior lip of the cervix. Uterus is gently dilated with Gomez dilators. Cervical os is noted to be slightly stenotic. Once inside, uterus is sounded to 7 cm. Next the hysteroscopy is performed using normal saline. The above noted findings are made. Right tubal ostia is visualized but the left is not. There does appear to be a fairly thin endometrium however there is an area that appears to be probable submucosal fibroid with some fat noted with the fibroid. Hysteroscope was withdrawn and the cervix is gently dilated further. A polyp forceps was introduced and a small amount of tissue with what appeared to be a small piece of fat was obtained. Next a small curet was introduced and sharp curettage was performed until a gritty texture was noted. Irregular contour was palpated. A scant further amount of tissue was obtained. Specimen is removed from the field. No active bleeding is noted. The Allis clamp was removed and no bleeding is noted. Her bladder is then re-drained and clear fluid is again noted. Next there is noted to be a small laceration on the introitus at the 7 o'clock position. This was sutured with one interrupted stitch of 4-0 Vicryl suture. Excellent hemostasis is noted. Rectal exam was also performed and no abnormalities were palpated. All sponge and needle counts are correct. Patient is then taken to recovery room in stable condition.
[2022-08-22 13:52] VITALS: TEMP 97.2
[2022-08-22] MEDS ORDERED: ACETAMINOPHEN TAB 325 MG TAB ONE (14:23)
[2022-08-22 14:40] VITALS: BP 145/78; PULSE 79
== END 2022-08-22 15:00 | disposition home or self-care (01) ==
LOC: OR 11:02
PROVIDERS: ATTEND Obstetrics & Gynecology
DX: N95.0 Postmenopausal bleeding (principal); N83.202 Unspecified ovarian cyst, left side; J45.909 Unspecified asthma, uncomplicated; I10 Essential (primary) hypertension; E78.5 Hyperlipidemia, unspecified; M19.90 Unspecified osteoarthritis, unspecified site; K21.9 Gastro-esophageal reflux disease without esophagitis; R55 Syncope and collapse; F41.9 Anxiety disorder, unspecified; Z90.89 Acquired absence of other organs; Z98.890 Other specified postprocedural states; Z80.3 Family history of malignant neoplasm of breast; Z83.3 Family history of diabetes mellitus; Z82.49 Family history of ischemic heart disease and other diseases of the circulatory system; Z79.51 Long term (current) use of inhaled steroids; Z79.82 Long term (current) use of aspirin; Z79.2 Long term (current) use of antibiotics; Z79.02 Long term (current) use of antithrombotics/antiplatelets; Z79.1 Long term (current) use of non-steroidal anti-inflammatories (NSAID); Z79.899 Other long term (current) drug therapy; Z91.012 Allergy to eggs; Z88.8 Allergy status to other drugs, medicaments and biological substances
CPT/HCPCS: 58558; J2250; J0330; J2405; J3010; J1885; J2704; J2001

== ENCOUNTER → 2023-04-23 | Outpatient (CLI) | payer BC ==
--- NOTE | 2023-04-23 10:36 | USB ---
Reason for Exam: Additional evaluation requested from abnormal screening. Patient History: Menarche at age 13. Patient has no children. Postmenopausal. Cyst Aspiration on the Right side. Cyst Aspiration on the Left side. 02/03/2007, Benign Core Biopsy on the right side. Maternal aunt had breast cancer, age 80. Risk Values: Laura 5 year model risk: 2.3%. NCI Lifetime model risk: 6.3%. Technique: Method: Targeted. Prior Study Comparison: 04/11/2021 Bilateral Diagnostic Mammogram, [facility]. 04/14/2022 Bilateral MG 3D screening mammo w/cad, [facility]. 04/16/2023 Bilateral MG 3D screening mammo w/cad, [facility]. Findings: The upper inner quadrant of the left breast, the axilla of the left breast and the retroareolar of the left breast were scanned. Targeted ultrasound upper quadrant left breast 9:00 to 12:00 including scanning of the subareolar region and axilla. Scanning was targeted to the patient directed palpable site. No solid or cystic lesion is seen. Dense tissues present throughout. No axillary lymphadenopathy. Overall Assessment: Negative, BI-RAD 1 Management: Screening Mammogram of both breasts in 1 year. Further clinical management of any suspicious palpable abnormalities. If any enlargement is noted, the area can be rescanned. These results should not preclude additional follow-up of suspicious palpable abnormalities. Results were given to the patient verbally at the time of exam. Electronically signed and approved by: Yessenia White M.D. Radiologist
== END | disposition home or self-care (01) ==
LOC: RADUSWWP 09:37
PROVIDERS: ATTEND Obstetrics & Gynecology
DX: R92.8 Other abnormal and inconclusive findings on diagnostic imaging of breast (principal); Z78.0 Asymptomatic menopausal state; Z80.3 Family history of malignant neoplasm of breast

== ENCOUNTER → 2023-09-03 | Outpatient (CLI) | payer BC ==
--- NOTE | 2023-09-03 13:29 | P.PN ---
Progress Note - Text Progress Note Date: 09/03/23 Madelaine was seen and evaluated on 06-25-23. At this time a bilateral breast ultrasound was recommended. This was BIRAD 1. I discussed these results with the patient. She is going to have a bilateral mammogram in March with physician exam at that time. If she notices anything of concern she will call us sooner. This was personally reviewed. CC: Dr. Lipscomb
[2023-09-03 14:15] VITALS: BP 125/75; PULSE 78; RESP 17; TEMP 97.8
== END ==
LOC: WWCWWP 12:39
PROVIDERS: ATTEND Surgery
DX: Z12.31 Encounter for screening mammogram for malignant neoplasm of breast (principal); Z91.012 Allergy to eggs; Z88.8 Allergy status to other drugs, medicaments and biological substances

== ENCOUNTER → 2023-10-13 | Outpatient (CLI) | payer BC ==
--- NOTE | 2023-10-14 10:04 | CA ---
Transthoracic Echo Report Name: Madelaine Arias Age: 73 Gender: F : 1950 Exam Date: 10/13/2023 13:58 Exam Location: [place] [facility] Ht (in): 63 Wt (lb): 147 Ordering Physician: Anisha Lipscomb DO Attending/Referring Phys: Placement Interviewer Patsy Zazueta RDCS Procedure CPT: Indications: R07.9 CHEST PAIN Cardiac Hx: Technical Quality: Fair Contrast 1: Total Dose (mL): Contrast 2: Total Dose (mL): MEASUREMENTS (Male / Female) Normal Values 2D ECHO LV Diastolic Diameter PLAX 3.3 cm 4.2 - 5.9 / 3.9 - 5.3 cm LV Systolic Diameter PLAX 2.2 cm IVS Diastolic Thickness 1.0 cm 0.6 - 1.0 / 0.6 - 0.9 cm LVPW Diastolic Thickness 1.0 cm 0.6 - 1.0 / 0.6 - 0.9 cm LV Relative Wall Thickness 0.6 RV Internal Dim ED PLAX 2.8 cm LA Volume 31.8 cm??? 18 - 58 / 22 - 52 cm??? LA Volume Index 18.3 cm???/m??? 16 - 28 cm???/m??? M-MODE Aortic Root Diameter MM 2.9 cm LA Systolic Diameter MM 3.4 cm LA Ao Ratio MM 1.2 DOPPLER AV Peak Velocity 184.8 cm/s AV Peak Gradient 13.7 mmHg AV Mean Velocity 119.0 cm/s AV Mean Gradient 6.8 mmHg AV Velocity Time Integral 35.3 cm LVOT Peak Velocity 140.6 cm/s LVOT Peak Gradient 7.9 mmHg LVOT Velocity Time Integral 27.6 cm MV Area PHT 3.7 cm??? Mitral E Point Velocity 72.1 cm/s Mitral A Point Velocity 77.9 cm/s Mitral E to A Ratio 0.9 MV Deceleration Time 203.0 ms MV E' Velocity 8.3 cm/s Mitral E to MV E' Ratio 8.6 TR Peak Velocity 197.5 cm/s TR Peak Gradient 15.6 mmHg Right Ventricular Systolic Press 19.2 mmHg FINDINGS Left Ventricle Mildly increased left ventricular wall thickness. Left ventricular cavity size normal. Normal left ventricular systolic function with no obvious regional wall motion abnormalities. Left ventricular ejection fraction is estimated at 55-60 %. Right Ventricle Normal right ventricular size and function. Right ventricular systolic pressure within normal limits. Right Atrium Normal right atrial size. Left Atrium Normal left atrial size. Mitral Valve Structurally normal mitral valve. Moderate mitral annular calcification. Trace to mild mitral regurgitation. Aortic Valve Trileaflet aortic valve. No aortic valve stenosis or regurgitation. Tricuspid Valve Structurally normal tricuspid valve. Mild tricuspid regurgitation. Pulmonic Valve Structurally normal pulmonic valve. Trace pulmonic regurgitation. Pericardium No pericardial effusion. Aorta Normal size aortic root and proximal ascending aorta. CONCLUSIONS Normal LV size and function Previewed by: Dr. Dev Hobson MD (Electronically Signed) Final Date: 14 October 2023 10:04
== END | disposition home or self-care (01) ==
LOC: RADECHMAIN 13:49
PROVIDERS: ATTEND Family Medicine
DX: R07.9 Chest pain, unspecified (principal)
CPT/HCPCS: 93306

== ENCOUNTER → 2024-04-18 | Outpatient (CLI) | payer BC ==
--- NOTE | 2024-04-19 12:59 | MM ---
Reason for Exam: Screening (asymptomatic). Last screening mammogram was performed 12 month(s) ago. Patient History: Menarche at age 13. Patient has no children. Postmenopausal. Cyst Aspiration on the Right side. Cyst Aspiration on the Left side. 02/03/2007, Benign Core Biopsy on the right side. Maternal aunt had breast cancer, age 80. Risk Values: Laura 5 year model risk: 2.3%. NCI Lifetime model risk: 6.0%. Prior Study Comparison: 04/11/2021 Bilateral Diagnostic Mammogram, [facility]. 04/14/2022 Bilateral MG 3D screening mammo w/cad, [facility]. 04/16/2023 Bilateral MG 3D screening mammo w/cad, [facility]. Tissue Density: The breasts are heterogeneously dense, which may obscure small masses. Findings: Analyzed By CAD. There is no suspicious group of microcalcifications or new suspicious mass in either breast. Overall Assessment: Benign, BI-RAD 2 Management: Screening Mammogram of both breasts in 1 year. . Patient should continue monthly self-breast exams. A clinical breast exam by your physician is recommended on an annual basis. This exam should not preclude additional follow-up of suspicious palpable abnormalities. Note on Laura scores and lifetime risk: 1. A Laura score greater than 3% is considered moderate risk. If this is the case, consider specialist referral to assess eligibility for a risk reducing agent. 2. If overall lifetime risk for the development of breast cancer is 20% or higher, the patient may qualify for future screening with alternating mammogram and breast MRI. Electronically signed and approved by: Shamir Farah M.D. Radiologis
== END | disposition home or self-care (01) ==
LOC: RADMAMWWP 08:49
PROVIDERS: ATTEND Surgery
DX: Z12.31 Encounter for screening mammogram for malignant neoplasm of breast (principal); R92.333 Mammographic heterogeneous density, bilateral breasts; Z78.0 Asymptomatic menopausal state; Z80.3 Family history of malignant neoplasm of breast
CPT/HCPCS: 77063; 77067

== ENCOUNTER → 2024-04-22 | Outpatient (CLI) | payer BC ==
[2024-04-22 13:19] VITALS: BP 143/78; PULSE 77; RESP 16; TEMP 98.9
--- NOTE | 2024-04-22 13:30 | P.PN ---
Subjective Progress Note Date: 04/22/24 Principal diagnosis: fibrocystic breast disease breast pain/ fibrocystic breast disease Madelaine is a 73-year-old white female who presents for breast examination. She had a bilateral mammogram on 04-18-24 which was BIRAD 2, and personally interpreted. She complains of pain in both breast, but no new lumps, nodules or masses of concern. The pain on a scale of 1-10 is a 2 but not all the time. Laura 5-year risk 2.3% NCI lifetime risk 6% We have discussed chemoprophylaxis and at this time she will be followed conservatively, she has declined Caffeine: One cup per day She mae not smoke and is not exposed to secondhand smoke. chocolate: occasional BCP; none hormones: none Family history: 1. Maternal aunt: Breast cancer Hormonal history: Menarche:13 G0 menopause: 51 BCP: none hormones: none Surgical history: 1. Tonsillectomy 2. Left breast biopsy 3. camera put into uterus and a sample obtained Medical history: 1. Reflux 2. Asthma 3. HTN Social history: Smoking: Negative Alcohol: Negative Drugs: Negative - Constitutional Constitutional: Reports sweats - EENT Eyes: denies blurred vision, denies pain Ears: bilateral: tinnitus, deny: decreased hearing Ears, nose, mouth and throat: Denies headache, Denies sore throat - Breasts Breasts: bilateral: as per HPI - Cardiovascular Cardiovascular: Reports high blood pressure - Respiratory Comment: asthma - Gastrointestinal Gastrointestinal: Reports as per HPI - Genitourinary (Female) Genitourinary: Denies dysuria, Denies hematuria - Menstruation Menstruation: Reports postmenopausal - Musculoskeletal Comment: cramps in feet at night - Integumentary Integumentary: Denies pruritus, Denies rash - Neurological Neurological: Denies numbness, Denies weakness - Psychiatric Psychiatric: Denies anxiety, Denies depression - Endocrine Endocrine: Denies fatigue, Denies weight change - Hematologic/Lymphatic Comment: low dose aspirin - Allergic/Immunologic Allergic/Immunologic: Reports as per HPI Past Medical History Past Medical History: Asthma, GERD/Reflux, Hyperlipidemia, Hypertension, Osteoarthritis (OA), Syncope Additional Past Medical History / Comment(s): STATES "SEVERE FAINTING "- STATES CAUSED BY VASOVAGAL., CONSTIPATION., HIATAL HERNIA History of Any Multi-Drug Resistant Organisms: None Reported Past Surgical History: Breast Surgery, Tonsillectomy Additional Past Surgical History / Comment(s): EGD, colonoscopies, left breast biopsy, LAPAROSCOPIC SURGERY, Past Anesthesia/Blood Transfusion Reactions: Postoperative Nausea & Vomiting (PONV) Past Psychological History: Anxiety Smoking Status: Never smoker Past Alcohol Use History: None Reported Past Drug Use History: None Reported - Past Family History Mother Family Medical History: No Reported History Additional Family Medical History / Comment(s): maternal aunt with breast cancer Father Family Medical History: Diabetes Mellitus Additional Family Medical History / Comment(s): heart disease Medications and Allergies Home Medications Medication Instructions Recorded Confirmed Type Albuterol Inhaler [Ventolin Hfa 1 - 2 puff INHALATION RT-Q6H PRN 04/28/16 06/25/23 History Inhaler] Aspirin EC [Ecotrin Low Dose] 81 mg PO QAM 04/28/16 06/25/23 History Loratadine [Claritin] 10 mg PO DAILY PRN 04/28/16 06/25/23 History Montelukast [Singulair] 10 mg PO QAM 04/28/16 06/25/23 History Phenobarb/Hyoscy/Atropine/Scop 16.2 mg PO DAILY PRN 04/28/16 06/25/23 History [ Tablet] Pantoprazole [Protonix] 20 mg PO DAILY 12/27/18 06/25/23 History Cholecalciferol [Vitamin D3 (25 2,000 unit PO DAILY 08/19/19 06/25/23 History Mcg = 1000 Iu)] Atorvastatin [Lipitor] 20 mg PO DAILY 08/20/22 06/25/23 History Olmesartan Medoxomil [Benicar] 40 mg PO DAILY 08/20/22 06/25/23 History Allergies Allergy/AdvReac Type Severity Reaction Status Date / Time egg Allergy Dyspnea Verified 06/25/23 09:39 prednisone Allergy "TIGHT Verified 06/25/23 09:39 FEELING IN HER HEAD" Objective - Constitutional General appearance: Present: cooperative - EENT Eyes: Present: EOMI ENT: Present: hearing grossly normal - Neck Neck: Present: normal ROM - Respiratory Respiratory: bilateral: CTA - Cardiovascular Rhythm: regular Heart sounds: normal: S1, S2 - Integumentary Integumentary: Present: normal turgor - Musculoskeletal Musculoskeletal: Present: gait normal - Psychiatric Psychiatric: Present: A&O x's 3, appropriate affect, intact judgment & insight - Additional findings Additional findings: Breast examination: BRA: 42B inspection: Bilateral grade 2/3 ptosis Right breast: Multi-positional exam no dominant masses or nodules of concern, prominent anterior rib cage palpable at the 5 o'clock position; to palpation in the 6 o'clock position with some lobular breast tissue Right axilla: No adenopathy of concern left breast: Multiple positional exam no dominant masses or nodules of concern, fibrocystic breast changes slight fullness upper outer quadrant area, lobular dense breast tissue in the 1 to 2 o'clock position which is tender to palpation Left axilla: No adenopathy of concern Anterior ribs and chest wall tenderness in the intercostal spaces to examination bilaterally Assessment and Plan Assessment: Impression: 1. Fibrocystic breast changes 2. Prominent anterior rib cage 3. Family history of cancer 4. Asthma 5. Mastodynia 6. Chest wall tenderness Plan: 1. Repeat bilateral mammogram and physician exam in 1 year 2. Bilateral whole breast ultrasound with follow-up after this is done 3. Patient to call immediately if she has any concerns or questions regarding her breast 4. Reassurance regarding chest wall tenderness 5. On today's examination there is nothing on physical examination or radiographically which would warrant interventional biopsy 6. We have discussed lifestyle modification/stopping caffeine intake and possible primrose oil she is going to consider these things Additional CC's: Anisha Lipscomb
== END ==
LOC: WWCWWP 12:55
PROVIDERS: ATTEND Surgery
DX: N60.12 Diffuse cystic mastopathy of left breast (principal); N64.4 Mastodynia; R07.89 Other chest pain; J45.909 Unspecified asthma, uncomplicated; Z77.22 Contact with and (suspected) exposure to environmental tobacco smoke (acute) (chronic); Z80.3 Family history of malignant neoplasm of breast; Z91.012 Allergy to eggs; Z88.8 Allergy status to other drugs, medicaments and biological substances; Z79.899 Other long term (current) drug therapy

== ENCOUNTER → 2024-10-07 | Outpatient (CLI) | payer BC ==
--- NOTE | 2024-10-07 10:16 | USB ---
Reason for Exam: Clinical finding. Patient History: Menarche at age 13. Patient has no children. Postmenopausal. Cyst Aspiration on the Right side. Cyst Aspiration on the Left side. 02/03/2007, Benign Core Biopsy on the right side. Maternal aunt had breast cancer, age 80. Risk Values: Laura 5 year model risk: 2.3%. NCI Lifetime model risk: 5.7%. Technique: Method: Whole Breast Handheld. Prior Study Comparison: 04/14/2022 Bilateral MG 3D screening mammo w/cad, [facility]. 04/16/2023 Bilateral MG 3D screening mammo w/cad, [facility]. 04/18/2024 Bilateral MG 3D screening mammo w/cad, [facility]. Findings: The whole breast of both breasts, the axilla of both breasts and the retroareolar of both breasts were scanned. Electronically signed and approved by: Ricky Guerrero DO
== END | disposition home or self-care (01) ==
LOC: RADUSWWP 09:29
PROVIDERS: ATTEND Surgery
DX: N64.4 Mastodynia (principal); Z78.0 Asymptomatic menopausal state; Z80.3 Family history of malignant neoplasm of breast

== ENCOUNTER → 2025-04-19 | Outpatient (CLI) | payer BC ==
--- NOTE | 2025-04-19 11:34 | MM ---
Reason for Exam: Screening (asymptomatic). Last screening mammogram was performed 12 month(s) ago. Patient History: Menarche at age 13. Patient has no children. Postmenopausal. Cyst Aspiration on the Right side. Cyst Aspiration on the Left side. 02/03/2007, Benign Core Biopsy on the right side. Maternal aunt had breast cancer, age 80. Risk Values: Laura 5 year model risk: 2.3%. NCI Lifetime model risk: 5.7%. Prior Study Comparison: 04/14/2022 Bilateral MG 3D screening mammo w/cad, [facility]. 04/16/2023 Bilateral MG 3D screening mammo w/cad, [facility]. 04/18/2024 Bilateral MG 3D screening mammo w/cad, [facility]. Tissue Density: The breasts are heterogeneously dense, which may obscure small masses. Findings: Analyzed By CAD. Right breast biopsy clip. Right breast: There is no suspicious group of microcalcifications or new suspicious mass. Benign-appearing calcifications right breast. Left breast: There is no suspicious group of microcalcifications or new suspicious mass. Benign-appearing calcifications left breast. Overall Assessment: Benign, BI-RAD 2 Management: Screening Mammogram of both breasts in [address] [facility] will attempt to contact patient to return for supplemental views and ultrasound if indicated. Patient should continue monthly self-breast exams. A clinical breast exam by your physician is recommended on an annual basis. This exam should not preclude additional follow-up of suspicious palpable abnormalities. Note on Laura scores and lifetime risk: 1. A Laura score greater than 3% is considered moderate risk. If this is the case, consider specialist referral to assess eligibility for a risk reducing agent. 2. If overall lifetime risk for the development of breast cancer is 20% or higher, the patient may qualify for future screening with alternating mammogram and breast MRI. [facility], , 04/19/2025 11:08 AM. Electronically signed and approved by: Ricky Guerrero DO
== END | disposition home or self-care (01) ==
LOC: RADMAMWWP 09:59
PROVIDERS: ATTEND Surgery
DX: Z12.31 Encounter for screening mammogram for malignant neoplasm of breast (principal); R92.333 Mammographic heterogeneous density, bilateral breasts; Z78.0 Asymptomatic menopausal state; Z80.3 Family history of malignant neoplasm of breast
CPT/HCPCS: 77063; 77067

== ENCOUNTER → 2025-04-20 | Outpatient (CLI) | payer BC ==
[2025-04-20 11:26] VITALS: BP 143/77; PULSE 85; RESP 17; TEMP 98.1
--- NOTE | 2025-04-20 11:38 | P.PN ---
Subjective Progress Note Date: 04/20/25 Principal diagnosis: fibrocystic breast disease Principal diagnosis: fibrocystic breast disease breast pain/ fibrocystic breast disease Madelaine is a 74-year-old white female who presents for breast examination. She had a bilateral mammogram on 04-19-25 which is BIRAD 2, and personally interpreted. She complains of pain in both breast, no change since last year. She complains of new nodularity of the left breast. The pain on a scale of 1-10 is a 2 but not all the time. Laura 5-year risk 2.3% NCI lifetime risk 5.7% We have discussed chemoprophylaxis and at this time she will be followed conservatively, she has declined Caffeine: One cup per day She mae not smoke and is not exposed to secondhand smoke. chocolate: occasional BCP; none hormones: none Family history: 1. Maternal aunt: Breast cancer Hormonal history: Menarche:13 G0 menopause: 51 BCP: none hormones: none Surgical history: 1. Tonsillectomy 2. Left breast biopsy 3. camera put into uterus and a sample obtained Medical history: 1. Reflux 2. Asthma 3. HTN Social history: Smoking: Negative Alcohol: Negative Drugs: Negative - Constitutional Constitutional: Reports sweats - EENT Eyes: denies blurred vision, denies pain Ears: bilateral: tinnitus, deny: decreased hearing Ears, nose, mouth and throat: Denies headache, Denies sore throat - Breasts Breasts: bilateral: as per HPI - Cardiovascular Cardiovascular: Reports high blood pressure - Respiratory Comment: asthma - Gastrointestinal Gastrointestinal: Reports as per HPI - Genitourinary (Female) Genitourinary: Denies dysuria, Denies hematuria - Menstruation Menstruation: Reports postmenopausal - Musculoskeletal Comment: cramps in feet at night - Integumentary Integumentary: Denies pruritus, Denies rash - Neurological Neurological: Denies numbness, Denies weakness - Psychiatric Psychiatric: Denies anxiety, Denies depression - Endocrine Endocrine: Denies fatigue, Denies weight change - Hematologic/Lymphatic Comment: low dose aspirin - Allergic/Immunologic Allergic/Immunologic: Reports as per HPI Past Medical History Past Medical History: Asthma, GERD/Reflux, Hyperlipidemia, Hypertension, Osteoarthritis (OA), Syncope Additional Past Medical History / Comment(s): STATES "SEVERE FAINTING "- STATES CAUSED BY VASOVAGAL., CONSTIPATION., HIATAL HERNIA History of Any Multi-Drug Resistant Organisms: None Reported Past Surgical History: Breast Surgery, Tonsillectomy Additional Past Surgical History / Comment(s): EGD, colonoscopies, left breast biopsy, LAPAROSCOPIC SURGERY, Past Anesthesia/Blood Transfusion Reactions: Postoperative Nausea & Vomiting (PONV) Past Psychological History: Anxiety Smoking Status: Never smoker Past Alcohol Use History: None Reported Past Drug Use History: None Reported - Past Family History Mother Family Medical History: No Reported History Additional Family Medical History / Comment(s): maternal aunt with breast cancer Father Family Medical History: Diabetes Mellitus Additional Family Medical History / Comment(s): heart disease Medications and Allergies Home Medications Medication Instructions Recorded Confirmed Type Albuterol Inhaler [Ventolin Hfa 1 - 2 puff INHALATION RT-Q6H PRN 04/28/16 06/25/23 History Inhaler] Aspirin EC [Ecotrin Low Dose] 81 mg PO QAM 04/28/16 06/25/23 History Loratadine [Claritin] 10 mg PO DAILY PRN 04/28/16 06/25/23 History Montelukast [Singulair] 10 mg PO QAM 04/28/16 06/25/23 History Phenobarb/Hyoscy/Atropine/Scop 16.2 mg PO DAILY PRN 04/28/16 06/25/23 History [ Tablet] Pantoprazole [Protonix] 20 mg PO DAILY 12/27/18 06/25/23 History Cholecalciferol [Vitamin D3 (25 2,000 unit PO DAILY 08/19/19 06/25/23 History Mcg = 1000 Iu)] Atorvastatin [Lipitor] 20 mg PO DAILY 08/20/22 06/25/23 History Olmesartan Medoxomil [Benicar] 40 mg PO DAILY 08/20/22 06/25/23 History Allergies Allergy/AdvReac Type Severity Reaction Status Date / Time egg Allergy Dyspnea Verified 06/25/23 09:39 prednisone Allergy "TIGHT Verified 06/25/23 09:39 FEELING IN HER HEAD" Objective - Vital Signs Vital signs: Vital Signs Temp 98.1 F 04/20/25 11:24 Pulse 85 04/20/25 11:24 Resp 17 04/20/25 11:24 BP 143/77 04/20/25 11:24 Pulse Ox 97 04/20/25 11:24 FiO2 Intake & Output 04/19/25 04/20/25 04/20/25 18:59 06:59 18:59 Weight 68.039 kg - Constitutional General appearance: Present: cooperative - EENT Eyes: Present: EOMI ENT: Present: hearing grossly normal - Neck Neck: Present: normal ROM - Respiratory Respiratory: bilateral: CTA - Cardiovascular Rhythm: regular Heart sounds: normal: S1, S2 - Integumentary Integumentary: Present: normal turgor - Musculoskeletal Musculoskeletal: Present: gait normal - Psychiatric Psychiatric: Present: A&O x's 3, appropriate affect, intact judgment & insight - Additional findings Additional findings: Breast examination: BRA: 42B inspection: Bilateral grade 2/3 ptosis Right breast: Multi-positional exam no dominant masses or nodules of concern, prominent anterior rib cage palpable at the 5 o'clock position; to palpation in the 6 o'clock position with some lobular breast tissue Right axilla: No adenopathy of concern left breast: Multiple positional exam no dominant masses or nodules of concern, fibrocystic breast changes slight fullness upper outer quadrant area, lobular dense breast tissue in the 1 to 2 o'clock position which is tender to palpation Left axilla: No adenopathy of concern fungal infection under both breast, worse left than right Anterior ribs and chest wall tenderness in the intercostal spaces to examination bilaterally Assessment and Plan Assessment: Impression: 1. Fibrocystic breast changes 2. Prominent anterior rib cage 3. Family history of cancer 4. Asthma 5. Mastodynia 6. Chest wall tenderness 7. fungal infection under breast Plan: 1. Repeat bilateral mammogram and physician exam in 1 year 2. Bilateral whole breast ultrasound with follow-up after this is done 3. Patient to call immediately if she has any concerns or questions regarding her breast 4. Reassurance regarding chest wall tenderness 5. On today's examination there is nothing on physical examination or radiographically which would warrant interventional biopsy 6. We have discussed lifestyle modification/stopping caffeine intake and possible primrose oil she is going to consider these things 7. nystatin as needed Additional CC's: Anisha Lipscomb
== END ==
LOC: WWCWWP 10:41
PROVIDERS: ATTEND Surgery
DX: N60.19 Diffuse cystic mastopathy of unspecified breast (principal); J45.909 Unspecified asthma, uncomplicated; N64.4 Mastodynia; B37.89 Other sites of candidiasis; R07.89 Other chest pain; Z80.9 Family history of malignant neoplasm, unspecified; Z88.8 Allergy status to other drugs, medicaments and biological substances; Z91.012 Allergy to eggs